=== PATIENT | female | born 1985 | race American Indian/Alaskan Native ===

== ENCOUNTER 2017-06-02 10:27 | Emergency (ER) | payer MEDICAID ==
--- NOTE | 2017-06-02 11:57 | Emergency Department Report ---
Chief Complaint: Abdominal Pain Stated Complaint: 17 WKS PREG/NO MOVEMENT/ABD PAIN Time Seen by Provider: 06/02/17 11:54 - HPI History of Present Illness: PT states she is 17 weeks and she has not felt movement for 4 days. PT states she called [facility] today and she was told to go to the ED. PT states her last [facility] [facility] visit was at 10 weeks - ROS Review of Systems: -dysuria - vaginal bleeding - Exam Physical Exam: pt looks well, non toxic abd soft and non tender MSE screening note: Focused history and physical exam performed. Due to findings the following was ordered: labs, us ED Disposition for MSE Condition: Stable Referrals: PRIMARY CARE, [Primary Care Provider] - 3-5 Days
--- NOTE | 2017-06-02 13:13 | Emergency Department Report ---
ED General Adult HPI - General Chief complaint: OB/Uterine Contractions Stated complaint: 17 WKS PREG/NO MOVEMENT/ABD PAIN Time Seen by Provider: 06/02/17 11:54 Source: patient Mode of arrival: Ambulatory Limitations: No Limitations - History of Present Illness Initial comments: Patient states that she felt a lack of movement and some uterine contractions earlier. She states that she spoke to [facility] who is her OB provider and they directed her to come to the emergency department. She states that her last visit was at 10 weeks. Current complaint. She has not been vomiting. She denies any problems urinating. -: days(s) Location: abdomen Radiation: non-radiation Quality: other (crampy) Consistency: constant Improves with: none Worsens with: none Associated Symptoms: denies other symptoms Treatments Prior to Arrival: none - Related Data Previous Rx's Medication Instructions Recorded Last Taken Type Ciprofloxacin HCl [Cipro] 500 mg PO Q12H #6 tab 02/17/15 Unknown Rx Fluconazole [Diflucan] 150 mg PO ONCE #1 tablet 02/17/15 Unknown Rx metroNIDAZOLE [Metrogel 1%] 1 applicatio TP QDAY #1 gel..gram. 02/17/15 Unknown Rx traMADol [Ultram 50 MG tab] 50 mg PO Q4HR PRN #15 tablet 02/17/15 Unknown Rx Allergies Allergy/AdvReac Type Severity Reaction Status Date / Time Penicillins Allergy Hives Verified 02/17/15 18:23 ED Review of Systems ROS: Stated complaint: 17 WKS PREG/NO MOVEMENT/ABD PAIN Other details as noted in HPI Constitutional: denies: chills, fever Eyes: denies: eye pain, eye discharge, vision change ENT: denies: ear pain, throat pain Respiratory: denies: cough, shortness of breath, wheezing Cardiovascular: denies: chest pain, palpitations Endocrine: no symptoms reported Gastrointestinal: as per HPI. denies: nausea, diarrhea Genitourinary: denies: urgency, dysuria, frequency, hematuria, discharge, abnormal menses (no vaginal bleeding) Musculoskeletal: denies: back pain, joint swelling, arthralgia Skin: denies: rash, lesions Neurological: denies: headache, weakness, paresthesias Psychiatric: denies: anxiety, depression Hematological/Lymphatic: denies: easy bleeding, easy bruising ED Past Medical Hx - Past Medical History Previous Medical History?: Yes Hx Hypertension: Yes - Surgical History Past Surgical History?: Yes Additional Surgical History: d&c - Social History Smoking Status: Never Smoker Substance Use Type: None - Medications Home Medications: Home Medications Medication Instructions Recorded Confirmed Last Taken Type Ciprofloxacin HCl [Cipro] 500 mg PO Q12H #6 tab 02/17/15 Unknown Rx Fluconazole [Diflucan] 150 mg PO ONCE #1 tablet 02/17/15 Unknown Rx metroNIDAZOLE [Metrogel 1%] 1 applicatio TP QDAY #1 gel..gram. 02/17/15 Unknown Rx traMADol [Ultram 50 MG tab] 50 mg PO Q4HR PRN #15 tablet 02/17/15 Unknown Rx ED Physical Exam - General Limitations: No Limitations General appearance: alert, in no apparent distress - Head Head exam: Present: atraumatic, normocephalic - Eye Eye exam: Present: normal appearance. Absent: scleral icterus - ENT ENT exam: Present: mucous membranes moist - Neck Neck exam: Present: normal inspection - Respiratory Respiratory exam: Present: normal lung sounds bilaterally. Absent: respiratory distress - Cardiovascular Cardiovascular Exam: Present: regular rate, normal rhythm. Absent: systolic murmur, diastolic murmur, rubs, gallop - GI/Abdominal GI/Abdominal exam: Present: soft, normal bowel sounds. Absent: distended, tenderness, guarding, rebound, rigid - Extremities Exam Extremities exam: Present: normal inspection - Back Exam Back exam: Present: normal inspection - Neurological Exam Neurological exam: Present: alert, oriented X3, CN II-XII intact. Absent: motor sensory deficit - Psychiatric Psychiatric exam: Present: normal affect, normal mood - Skin Skin exam: Present: warm, dry, intact, normal color. Absent: rash ED Course Vital Signs 06/02/17 06/02/17 06/02/17 11:50 11:54 12:27 Temperature 98.5 F Pulse Rate 89 90 Respiratory 20 16 20 Rate Blood Pressure 122/81 Blood Pressure 123/83 [Right] O2 Sat by Pulse 99 100 99 Oximetry Critical care attestation.: If time is entered above; I have spent that time in minutes in the direct care of this critically ill patient, excluding procedure time. ED Disposition Clinical Impression: with 16 completed weeks gestation Disposition: DC- TO HOME OR SELFCARE Is pt being admited?: No Does the pt Need Aspirin: No Condition: Stable Instructions: (ED) Additional Instructions: Follow-up with your usual OB physician. Return any acute change or problem. Referrals: PRIMARY CARE,MD [Primary Care Provider] - 3-5 Days Time of Disposition: 14:40
[2017-06-02 13:34] LABS: Bilirubin,Urine NEG (Negative); Blood,Urine SM (Negative); Ketones,Urine NEG (Negative); Leukocyte Esterase,Urine TR (Negative); Nitrite,Urine NEG (Negative); Protein,Urine <15 mg/dL mg/dL (Negative); Urobilinogen,Urine < 2.0 mg/dL (<2.0)
--- NOTE | 2017-06-02 14:24 | Ultrasound Report ---
COMPLETE OB ULTRASOUND: No motion. Gestation: Lemus Position: Transverse, head to maternal left Amniotic Fluid: WNL Placenta: Anterior Placental Grade: 0 Heart Rate: 145 BPM Cervical length: 5.3 cm (Normal > 3 cm) X It is too early for a anatomical survey BPD: 3.5 cm = 16 w 6 d HC: 13.2 cm = 16 w 5 d AC: 11.0 cm = 16 w 6 d FL: 2.2 cm = 16 w 4 d HC/AC Ratio: 1.20 Cephalic Index: 87.5 Estimated Weight: 166 grams Clinical age = 16 w 4 d EDC: 11/13/17 US Gest. Age = 16 w 5 d EDC: 11/12/17
[2017-06-02 14:48] VITALS: BP 120/84
== END 2017-06-02 14:48 | disposition home or self-care (01) ==
LOC: ED 10:27
DX: O36.8120 Decreased fetal movements, second trimester, not applicable or unspecified (principal); Z3A.16 16 weeks gestation of pregnancy; I10 Essential (primary) hypertension; Z88.0 Allergy status to penicillin
CPT/HCPCS: 76805; 81001; 81025

== ENCOUNTER 2017-07-10 08:58 | Outpatient (CLI) | payer MEDICAID ==
[2017-07-10] MEDS ORDERED: LACTATED RINGERS 500 ML IV ONE (09:22)
[2017-07-10 09:39] VITALS: BP 132/72
[2017-07-10 09:45] LABS: Bacteria,Urine 1+ /HPF (Negative); Bilirubin,Urine NEG (Negative); Blood,Urine NEG (Negative); Ketones,Urine TR mg/dL (Negative); Leukocyte Esterase,Urine LG (Negative); Mucus,Urine 2+ /HPF; Nitrite,Urine NEG (Negative); Urobilinogen,Urine < 2.0 mg/dL (<2.0)
== END 2017-07-10 12:04 | disposition home or self-care (01) ==
LOC: TRG 08:58
PROVIDERS: ATTEND Obstetrics & Gynecology
DX: O47.02 False labor before 37 completed weeks of gestation, second trimester (principal); Z3A.21 21 weeks gestation of pregnancy
CPT/HCPCS: 81001

== ENCOUNTER 2017-07-11 19:35 | Emergency (ER) | payer MEDICAID ==
[2017-07-11 20:29] LABS: Basophils % (Auto) 0.7 % (0.0-1.8); Eosinophils % (Auto) 0.5 % (0.0-4.3); Hematocrit 33.3 % (30.3-42.9); Hemoglobin 11.4 gm/dl (10.1-14.3); Mean Corpuscular HGB Conc 34 % (30-34); Mean Corpuscular Hemoglobin 31 pg (28-32); Mean Corpuscular Volume 90 fl (79-97); Platelet Count 186 K/mm3 (140-440); Red Blood Count 3.68 M/mm3 (3.65-5.03); Red Cell Distribution Width 12.7 % (13.2-15.2); White Blood Count 7.9 K/mm3 (4.5-11.0)
[2017-07-11 20:53] LABS: Anion Gap 16 mmol/L; BUN/Creatinine Ratio 8.33; Blood Urea Nitrogen 5 mg/dL (7-17); Calcium 8.9 mg/dL (8.4-10.2); Carbon Dioxide 22 mmol/L (22-30); Chloride 101.8 mmol/L (98-107); Glucose 95 mg/dL (65-100); Potassium 3.4 mmol/L (3.6-5.0); Sodium 136 mmol/L (137-145)
[2017-07-12] MEDS ORDERED: TYLENOL PO ONE (00:56)
[2017-07-12] MEDS ORDERED: TYLENOL ONE (01:01)
--- NOTE | 2017-07-12 10:20 | Emergency Department Report ---
ED Chest Pain HPI - General Chief Complaint: Chest Pain Stated Complaint: SOB Time Seen by Provider: 07/12/17 10:05 Source: patient Mode of arrival: Ambulatory Limitations: No Limitations - History of Present Illness Initial Comments: 31-year-old female presents to ER with complaints of palpitations on and off for one month. Patient has no significant past medical history. Patient is currently , with 21 weeks gestational age. During episodes of palpitations, she experiences shortness of breath, chest tightness, some nausea. She denies episodes of vomiting and diarrhea fever, no cough. No known triggers or relieving factors for this palpitations. Palpitations, sporadically. She denies smoking, and she takes a drink of coffee once a week. Denies use of [id number] medication except vitamins. -: month(s) (1) Onset: during rest, during exertion Pain Location: other (center of her chest, nonradiating) Pain Radiation: none Severity: moderate Severity scale (0 -10): 0 Quality: tightness Consistency: intermittent (normal aggravating or relieving factors) re: nausea, dyspnea. denies: vomting, diaphoresis, sense of impending doom, other Other Symptoms: palpitations. denies: cough, fever, syncope, rash, acid taste in mouth, leg swelling Aspirin use within the Past 7 Days: (0) No - Related Data Previous Rx's Medication Instructions Recorded Last Taken Type Cephalexin [Keflex] 1,000 mg PO Q12HR #20 cap 07/12/17 Unknown Rx Allergies Allergy/AdvReac Type Severity Reaction Status Date / Time Penicillins Allergy Hives Verified 02/17/15 18:23 Heart Score - HEART Score History: Slightly suspicious EKG: Normal Age: < 45 Risk factors: No known risk factors Troponin: < normal limit HEART Score: 0 ED Review of Systems ROS: Stated complaint: SOB Other details as noted in HPI Comment: All other systems reviewed and negative Constitutional: see HPI, weakness. denies: chills, diaphoresis, fever, malaise Eyes: denies: eye pain, eye discharge, vision change ENT: denies: ear pain, dental pain, hearing loss Respiratory: see HPI, shortness of breath. denies: cough, orthopnea, stridor, wheezing Cardiovascular: chest pain (chest tightness), palpitations. denies: dyspnea on exertion, edema, syncope, paroxysmal nocturnal dyspnea, other Endocrine: no symptoms reported. denies: excessive sweating, flushing, intolerance to cold, intolerance to heat, increased hunger, increased thirst, increased urine, unexplained weight gain, unexplained weight loss Gastrointestinal: denies: abdominal pain, diarrhea, constipation, hematemesis, hematochezia, other Genitourinary: denies: dysuria, frequency, hematuria, discharge, abnormal menses , dyspareunia Musculoskeletal: denies: joint swelling, arthralgia Skin: denies: change in color, change in hair/nails, pruritus Neurological: denies: numbness, paresthesias, confusion, abnormal gait, vertigo Hematological/Lymphatic: denies: easy bleeding, easy bruising ED Past Medical Hx - Past Medical History Previous Medical History?: Yes Hx Hypertension: No Hx Diabetes: No Hx Deep Vein Thrombosis: No Hx Renal Disease: No Hx Sickle Cell Disease: No Hx Seizures: No Hx Asthma: No Hx HIV: No - Surgical History Past Surgical History?: Yes Additional Surgical History: d&c - Social History Smoking Status: Never Smoker Substance Use Type: None - Medications Home Medications: Home Medications Medication Instructions Recorded Confirmed Last Taken Type Cephalexin [Keflex] 1,000 mg PO Q12HR #20 cap 07/12/17 Unknown Rx ED Physical Exam - General Limitations: No Limitations General appearance: alert, in no apparent distress - Head Head exam: Present: atraumatic, normocephalic, normal inspection - Eye Eye exam: Present: normal appearance, PERRL, EOMI - ENT ENT exam: Present: normal exam - Neck Neck exam: Present: normal inspection, full ROM - Respiratory Respiratory exam: Present: normal lung sounds bilaterally - Cardiovascular Cardiovascular Exam: Present: regular rate, normal rhythm, normal heart sounds - GI/Abdominal GI/Abdominal exam: Present: soft, normal bowel sounds, other (gravid abdomen) - Rectal Rectal exam: Present: deferred - Extremities Exam Extremities exam: Present: normal inspection, full ROM, normal capillary refill - Back Exam Back exam: Present: normal inspection, full ROM - Neurological Exam Neurological exam: Present: alert, oriented X3, CN II-XII intact - Psychiatric Psychiatric exam: Present: normal affect - Skin Skin exam: Present: warm, dry ED Course Vital Signs 07/11/17 07/12/17 07/12/17 19:51 00:54 04:42 Temperature 98.2 F 98.1 F 97.6 F Pulse Rate 92 H 86 87 Respiratory 20 20 20 Rate Blood Pressure 131/76 126/74 134/103 Blood Pressure [Left] O2 Sat by Pulse 100 100 99 Oximetry 07/12/17 07/12/17 07/12/17 08:30 08:31 08:35 Temperature Pulse Rate 70 Respiratory 16 16 Rate Blood Pressure 117/65 Blood Pressure 100/70 [Left] O2 Sat by Pulse 100 100 Oximetry 07/12/17 07/12/17 07/12/17 08:37 08:39 08:41 Temperature Pulse Rate Respiratory Rate Blood Pressure 117/65 117/65 117/65 Blood Pressure [Left] O2 Sat by Pulse 98 98 98 Oximetry 07/12/17 07/12/17 07/12/17 08:43 08:45 08:47 Temperature Pulse Rate Respiratory Rate Blood Pressure 117/65 117/65 117/65 Blood Pressure [Left] O2 Sat by Pulse 99 100 99 Oximetry 07/12/17 07/12/17 07/12/17 08:49 08:51 08:53 Temperature Pulse Rate Respiratory Rate Blood Pressure 117/65 117/65 117/65 Blood Pressure [Left] O2 Sat by Pulse 100 100 99 Oximetry 07/12/17 07/12/17 07/12/17 08:55 08:57 08:59 Temperature Pulse Rate Respiratory Rate Blood Pressure 117/65 117/65 117/65 Blood Pressure [Left] O2 Sat by Pulse 98 100 99 Oximetry 07/12/17 07/12/17 07/12/17 09:00 09:03 09:05 Temperature Pulse Rate Respiratory Rate Blood Pressure 116/66 116/66 116/66 Blood Pressure [Left] O2 Sat by Pulse 100 100 100 Oximetry 07/12/17 07/12/17 07/12/17 09:07 09:09 09:11 Temperature Pulse Rate Respiratory Rate Blood Pressure 116/66 116/66 116/66 Blood Pressure [Left] O2 Sat by Pulse 98 100 100 Oximetry 07/12/17 07/12/17 07/12/17 09:13 09:15 09:17 Temperature Pulse Rate Respiratory Rate Blood Pressure 116/66 116/66 116/66 Blood Pressure [Left] O2 Sat by Pulse 99 98 98 Oximetry 07/12/17 07/12/17 07/12/17 09:19 09:21 09:23 Temperature Pulse Rate Respiratory Rate Blood Pressure 116/66 116/66 116/66 Blood Pressure [Left] O2 Sat by Pulse 98 100 100 Oximetry 07/12/17 07/12/17 07/12/17 09:25 09:27 09:29 Temperature Pulse Rate Respiratory Rate Blood Pressure 116/66 116/66 116/66 Blood Pressure [Left] O2 Sat by Pulse 100 100 100 Oximetry 07/12/17 07/12/17 07/12/17 09:31 09:33 09:35 Temperature Pulse Rate Respiratory Rate Blood Pressure 116/66 116/66 116/66 Blood Pressure [Left] O2 Sat by Pulse 100 99 100 Oximetry 07/12/17 07/12/17 07/12/17 09:37 09:39 09:41 Temperature Pulse Rate Respiratory Rate Blood Pressure 116/66 116/66 116/66 Blood Pressure [Left] O2 Sat by Pulse 100 100 99 Oximetry 07/12/17 07/12/17 07/12/17 09:43 09:45 09:47 Temperature Pulse Rate Respiratory Rate Blood Pressure 116/66 116/66 116/66 Blood Pressure [Left] O2 Sat by Pulse 100 100 100 Oximetry 07/12/17 07/12/17 07/12/17 09:49 09:51 09:53 Temperature Pulse Rate Respiratory Rate Blood Pressure 116/66 116/66 116/66 Blood Pressure [Left] O2 Sat by Pulse 100 100 100 Oximetry 07/12/17 07/12/17 07/12/17 09:55 09:57 09:59 Temperature Pulse Rate Respiratory Rate Blood Pressure 116/66 116/66 116/66 Blood Pressure [Left] O2 Sat by Pulse 100 100 99 Oximetry 07/12/17 07/12/17 07/12/17 10:00 10:03 10:05 Temperature Pulse Rate Respiratory Rate Blood Pressure 116/74 116/74 116/74 Blood Pressure [Left] O2 Sat by Pulse 100 100 100 Oximetry 07/12/17 07/12/17 07/12/17 10:07 10:09 10:11 Temperature Pulse Rate Respiratory Rate Blood Pressure 116/74 116/74 116/66 Blood Pressure [Left] O2 Sat by Pulse 99 100 100 Oximetry 07/12/17 10:13 Temperature Pulse Rate Respiratory Rate Blood Pressure 116/66 Blood Pressure [Left] O2 Sat by Pulse 100 Oximetry - Reevaluation(s) Reevaluation #1: 07/12/17 12:48 No new complaints GARFIELD score - Garfield Score Age > 65: (0) No Aspirin use within the Past 7 Days: (0) No 3 or more CAD Risk Factors: (0) No 2 or more Angina events in past 24 hrs: (0) No Known CAD with more than 50% Stenosis: (0) No Elevated Cardiac Markers: (0) No ST Deviation Greater than 0.5mm: (0) No GARFIELD Score: 0 ED Medical Decision Making - Lab Data Result diagrams: 07/11/17 20:04 07/12/17 11:10 - EKG Data -: EKG Interpreted by Me (EKG with rate of 86 bpm normal axis, some artifacts, T -wave inversionsi in ) EKG shows normal: sinus rhythm, axis, intervals, QRS complexes, ST-T waves Rate: normal - EKG Data 07/12/17 12:52 EKG normal sinus rhythm rate of 86 beats per minutes, normal axis, T-wave inversion in V1 and V2, nonspecific ST changes in the 152 with 3 and aVF. Some artifacts noted, no ST elevations, normal intervals - Medical Decision Making Her urinalysis shows presence of UTI on labs done on 11 July were within normal limits Patient will follow with her primary care at [facility]. - Differential Diagnosis palpitations, urinary tract infection Critical Care Time: No Critical care attestation.: If time is entered above; I have spent that time in minutes in the direct care of this critically ill patient, excluding procedure time. ED Disposition Clinical Impression: Intermittent palpitations, UTI (urinary tract infection) during Disposition: TO HOME OR SELFCARE Is pt being admited?: No Does the pt Need Aspirin: No Condition: Stable Prescriptions: Cephalexin [Keflex] 1,000 mg PO Q12HR #20 cap Referrals: PRIMARY CARE, [Primary Care Provider] - 3-5 Days Time of Disposition: 13:03
[2017-07-12 10:52] LABS: Bacteria,Urine 2+ /HPF (Negative); Bilirubin,Urine NEG (Negative); Blood,Urine NEG (Negative); Ketones,Urine NEG (Negative); Leukocyte Esterase,Urine LG (Negative); Mucus,Urine FEW /HPF; Nitrite,Urine NEG (Negative); Protein,Urine <15 mg/dL mg/dL (Negative); Urobilinogen,Urine < 2.0 mg/dL (<2.0)
[2017-07-12 11:44] LABS: Alanine Aminotransferase 12 units/L (7-56); Albumin 3.5 g/dL (3.9-5); Albumin/Globulin Ratio 1.2 %; Alkaline Phosphatase 52 units/L (35-129); Anion Gap 18 mmol/L; Blood Urea Nitrogen 6 mg/dL (7-17); Calcium 9.2 mg/dL (8.4-10.2); Carbon Dioxide 21 mmol/L (22-30); Chloride 103.9 mmol/L (98-107); Glucose 81 mg/dL (65-100); Sodium 139 mmol/L (137-145); Total Protein 6.5 g/dL (6.3-8.2)
[2017-07-12 13:29] VITALS: BP 120/72
== END 2017-07-12 13:29 | disposition home or self-care (01) ==
LOC: ED 19:35
DX: O23.42 Unspecified infection of urinary tract in pregnancy, second trimester (principal); Z3A.21 21 weeks gestation of pregnancy; R00.2 Palpitations
CPT/HCPCS: 36415; 80048; 80053; 81001; 83735; 84436; 84443; 84484; 84702; 85025; 93005; 93010

== ENCOUNTER 2017-09-26 10:44 | Outpatient (CLI) | payer MEDICAID ==
[2017-09-26] MEDS ORDERED: LACTATED RINGERS 500 ML IV ONE (10:49)
[2017-09-26 11:11] VITALS: BP 129/76
== END 2017-09-26 12:15 | disposition home or self-care (01) ==
LOC: TRG 10:44
PROVIDERS: ATTEND Obstetrics & Gynecology
DX: O47.03 False labor before 37 completed weeks of gestation, third trimester (principal); Z79.899 Other long term (current) drug therapy; Z3A.32 32 weeks gestation of pregnancy
CPT/HCPCS: 59025; 82962

== ENCOUNTER 2021-09-24 19:53 | Emergency (ER) | payer MEDICAID ==
[2021-09-24] MEDS ORDERED: FLUORESCEIN 1 MG STRIP OP ONE (20:47)
[2021-09-24] MEDS ORDERED: ACETAMINOPHEN W/CODEINE 300-30 MG TAB PO ONE (20:47)
[2021-09-24] MEDS ORDERED: ACETAMINOPHEN 325 MG TAB PO ONE (20:47)
[2021-09-24] MEDS ORDERED: TETRACAINE 0.5% OPHTH SOLN 4ML OU PRN (20:48)
--- NOTE | 2021-09-24 21:05 | Emergency Department Report ---
ED General Adult HPI - General Chief complaint: Eye Problems Stated complaint: RIGHT EYE IS IRRRITATING ME Time Seen by Provider: 09/24/21 20:21 Source: patient Mode of arrival: Ambulatory Limitations: No Limitations - History of Present Illness Initial comments: 35-year-old -[place] female patient presents with complaints of right pain, photophobia, and irritation upon waking this morning. She states the eye is red and that she slept in her contacts last night. She denies any vision changes or difficulty moving her eyes/pain with eye movements. Patient is currently . She rates her pain as a 10/10 in severity. Severity scale (0 -10): 8 - Related Data Home Medications Medication Instructions Recorded Confirmed Last Taken Multivitamin Tablet 1 tab PO DAILY 11/03/17 11/03/17 11/03/17 09:00 valACYclovir 1,000 mg PO DAILY 11/03/17 11/03/17 11/03/17 08:00 Previous Rx's Medication Instructions Recorded Last Taken Type cephALEXin [Keflex] 1,000 mg PO Q12HR #20 cap 07/12/17 11/03/17 09:00 Rx Acetaminophen/Codeine [Tylenol 1 tab PO Q6H PRN #8 tab 09/24/21 Unknown Rx /Codeine # 3 tab] Ofloxacin 0.3% [Floxin 0.3% Otic] 2 drops OT Q2H 7 Days #1 bottle 09/24/21 Unknown Rx Allergies Allergy/AdvReac Type Severity Reaction Status Date / Time Penicillins Allergy Hives Verified 02/17/15 18:23 ED Review of Systems ROS: Stated complaint: RIGHT EYE IS IRRRITATING ME Other details as noted in HPI Constitutional: denies: chills, fever, malaise Eyes: eye pain, eye discharge (watery). denies: vision change Neurological: denies: headache, numbness, paresthesias ED Past Medical Hx - Past Medical History Hx Hypertension: Yes (PIH) Hx Congestive Heart Failure: No Hx Diabetes: No Hx Deep Vein Thrombosis: No Hx Renal Disease: No Hx Sickle Cell Disease: No Hx Seizures: No Hx Asthma: No Hx COPD: No Hx HIV: No - Surgical History Additional Surgical History: d&c - Social History Smoking Status: Never Smoker - Medications Home Medications: Home Medications Medication Instructions Recorded Confirmed Last Taken Type cephALEXin [Keflex] 1,000 mg PO Q12HR #20 cap 07/12/17 11/05/17 11/03/17 09:00 Rx Multivitamin Tablet 1 tab PO DAILY 11/03/17 11/03/17 11/03/17 09:00 History valACYclovir 1,000 mg PO DAILY 11/03/17 11/03/17 11/03/17 08:00 History Acetaminophen/Codeine [Tylenol 1 tab PO Q6H PRN #8 tab 09/24/21 Unknown Rx /Codeine # 3 tab] Ofloxacin 0.3% [Floxin 0.3% Otic] 2 drops OT Q2H 7 Days #1 bottle 09/24/21 Unkn own Rx ED Physical Exam - General Limitations: No Limitations General appearance: alert, in no apparent distress - Head Head exam: Present: atraumatic, normocephalic - Eye Eye exam: Present: conjunctival injection (Left with mild upper eyelid swelling noted), other (Minimal uptake noted in circular pattern around iris with contact lens lied; eyelid everted and swept no foreign bodies noted) - Respiratory Respiratory exam: Absent: respiratory distress - Cardiovascular Cardiovascular Exam: Present: regular rate - Neurological Exam Neurological exam: Present: alert, oriented X3 - Psychiatric Psychiatric exam: Present: normal affect, normal mood - Skin Skin exam: Present: warm, dry, intact, normal color. Absent: rash ED Course Vital Signs 09/24/21 09/24/21 20:12 21:16 Temperature 97.1 F L Pulse Rate 86 Respiratory 22 18 Rate Blood Pressure 148/90 [Right] O2 Sat by Pulse 100 Oximetry ED Medical Decision Making - Medical Decision Making 35-year-old -[place] female patient presents with complaints of right pain, photophobia, and irritation upon waking this morning. She states the eye is red and that she slept in her contacts last night. She denies any vision changes or difficulty moving her eyes/pain with eye movements. Patient is currently . She rates her pain as a 10/10 in severity. superficial irritation of the cornea noted on exam. Will treat with ofloxacin and pain meds. Discussed risks versus benefits of using Tylenol with codeine in , patient verbalizes understanding and elects for Tylenol with codeine for pain control. 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 Discussed in detail signs and symptoms that should prompt immediate return to the ED, she verbalizes understanding Critical care attestation.: If time is entered above; I have spent that time in minutes in the direct care of this critically ill patient, excluding procedure time. ED Disposition Clinical Impression: Right corneal abrasion Disposition: HOME / SELF CARE / HOMELESS Is pt being admited?: No Condition: Stable Instructions: Corneal Abrasion Prescriptions: Ofloxacin 0.3% [Floxin 0.3% Otic] 2 drops OT Q2H 7 Days #1 bottle Acetaminophen/Codeine [Tylenol /Codeine # 3 tab] 1 tab PO Q6H PRN #8 tab PRN Reason: Pain , Severe (7-10) Referrals: LAMONT HOUGH MD [Staff Physician] - as needed Forms: Work/School Release Form(ED)
[2021-09-24 22:33] VITALS: BP 151/96
== END 2021-09-24 22:35 | disposition home or self-care (01) ==
LOC: ED 19:53
DX: O26.899 Other specified pregnancy related conditions, unspecified trimester (principal); S05.01XA Injury of conjunctiva and corneal abrasion without foreign body, right eye, initial encounter; I10 Essential (primary) hypertension; Z98.890 Other specified postprocedural states; Z88.0 Allergy status to penicillin; X58.XXXA Exposure to other specified factors, initial encounter; Y93.89 Activity, other specified; Y92.89 Other specified places as the place of occurrence of the external cause; Y99.8 Other external cause status; Z3A.00 Weeks of gestation of pregnancy not specified
CPT/HCPCS: 99282

== ENCOUNTER 2022-02-13 12:59 | Outpatient (CLI) | payer MEDICAID ==
[2022-02-13 13:53] LABS: Hematocrit 34.3 % (30.3-42.9); Mean Corpuscular HGB Conc 35 % (30-34); Mean Corpuscular Volume 91 fl (79-97); Platelet Count 190 K/mm3 (140-440); Red Blood Count 3.77 M/mm3 (3.65-5.03)
[2022-02-13 13:56] LABS: Bacteria,Urine 1+ /HPF (Negative); Bilirubin,Urine NEG (Negative); Blood,Urine NEG (Negative); Color,Urine Yellow (Yellow); Mucus,Urine FEW /HPF; Protein,Urine <15 mg/dL mg/dL (Negative); Urobilinogen,Urine < 2.0 mg/dL (<2.0)
[2022-02-13 14:16] LABS: Alanine Aminotransferase 7 units/L (7-56); Uric Acid 3.5 mg/dL (3.5-7.6)
[2022-02-13 14:58] LABS: Creatinine,Urine 101.4 mg/dL (0.1-20.0); Protein/Creatinine Ratio,Urine 0.2
[2022-02-13 15:01] VITALS: BP 123/62
== END 2022-02-13 15:35 | disposition home or self-care (01) ==
LOC: TRG 12:59 → APU 13:03 → TRG 15:35
PROVIDERS: ATTEND Obstetrics & Gynecology
DX: Z34.83 Encounter for supervision of other normal pregnancy, third trimester (principal); Z3A.29 29 weeks gestation of pregnancy
CPT/HCPCS: 36415; 59025; 81001; 82565; 82570; 83615; 84156; 84450; 84460; 84550; 85027

== ENCOUNTER 2022-04-13 11:53 | Inpatient (IN) | payer MEDICAID ==
[2022-04-13 14:20] LABS: Hematocrit 34.2 % (30.3-42.9); Hemoglobin 11.5 gm/dl (10.1-14.3); Mean Corpuscular HGB Conc 34 % (30-34); Mean Corpuscular Volume 92 fl (79-97); Platelet Count 177 K/mm3 (140-440); Red Blood Count 3.72 M/mm3 (3.65-5.03); Red Cell Distribution Width 13.5 % (13.2-15.2)
--- NOTE | 2022-04-13 14:39 | History and Physical Report ---
History of Present Illness Date of examination: 04/13/22 Date of admission: 04/13/22 11:53 Chief complaint: States she is here for induction of labor due to CHTN; states she baby was in the transverse position on her last ultrsound History of present illness: Early entry to care at [facility], course complicated by CHTN (Labetalol 200mg BID/ ASA 81mg); had abnormal hour GTT (154); but declined 2hour and 3 hour GTT, and accuchecks). Co-managed with [facility]. 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 History: herpes Family/Genetic History: diabetes (Aunt; MGM; PGM), hypertension (father; PGM), cancer (Lung CA: MGF; Colon CA: uncle) Social history: - Obstetrical History Expected Date of Delivery: 04/25/22 Actual Gestation: 38 Week(s) 2 Day(s) : 7 Para: 3 Hx # Term Pregnancies: 2 Number of Pregnancies: 1 Spontaneous Abortions: 3 Number of Living Children: 3 #1 Infant Gender: Male year: 2,008 Birthweight: 3.515 kg Method of Delivery: Vaginal Gestational age at delivery: 39 Complications: other (HTN) #2 Gender: Female year: 2,013 Birthweight: 2.807 kg Method of Delivery: Vaginal Gestational age at delivery: 34 Complications: other (HAs) #3 Infant Gender: Female year: 2,018 Birthweight: 3.09 kg Method of Delivery: Vaginal Gestational age at delivery: 38 Complications: none Medications and Allergies Allergies Allergy/AdvReac Type Severity Reaction Status Date / Time Penicillins Allergy Hives Verified 02/17/15 18:23 Home Medications Medication Instructions Recorded Confirmed Last Taken Type cephALEXin [Keflex] 1,000 mg PO Q12HR #20 cap 07/12/17 11/05/17 11/03/17 09:00 Rx Multivitamin Tablet 1 tab PO DAILY 11/03/17 11/03/17 11/03/17 09:00 History valACYclovir 1,000 mg PO DAILY 11/03/17 11/03/17 11/03/17 08:00 History Acetaminophen/Codeine [Tylenol 1 tab PO Q6H PRN #8 tab 09/24/21 Unknown Rx /Codeine # 3 tab] Ofloxacin 0.3% [Floxin 0.3% Otic] 2 drops OT Q2H 7 Days #1 bottle 09/24/21 U nknown Rx Review of Systems All systems: negative - Vital Signs Vital signs: Vital Signs Pulse BP Pulse Ox 84 141/89 98 04/13/22 12:31 04/13/22 12:31 04/13/22 12:31 Temp Pulse Resp BP Pulse Ox 98.7 F 84 16 141/89 98 04/13/22 13:17 04/13/22 14:28 04/13/22 13:17 04/13/22 13:17 04/13/22 14:28 - Physical Exam Breasts: Positive: normal Cardiovascular: Regular rate Lungs: Positive: Clear to auscultation, Normal air movement Abdomen: Positive: normal appearance, soft, normal bowel sounds Genitourinary (Female): Positive: normal external genitalia, normal perenium Vagina: Positive: normal moisture Uterus: Positive: enlarged Anus/Rectum: Positive: normal perianal skin Extremities: Positive: normal - Obstetrical FHR: category 1 Uterine Contraction Monitor Mode: External Cervical Dilatation: 0 Cervical Effacement Percentage: 0 station: -3 Uterine Contraction Pattern: Irregular Uterine Tone Measurement Phase: Resting Uterine Contraction Intensity: Mild Results Result Diagrams: 04/13/22 13:35 All other labs normal. Assessment and Plan A: IUP @ 38 2/7 Weeks Category I Tracing CHTN Uterine Fibroids r/o Transverse Position Maternal Obesity HSV II GB Positive P: Follow Routine L&D Admission Orders STAT bedside ultrasound for position PIH labs if VTX; proceed with Cervidil Induction if Transvere proceed with and BTL Labetalol 200mg PO BID GBS Prophylaxis
[2022-04-13] MEDS ORDERED: ePHEDrine SULFATE 50 MG/1 ML INJ IV PRN (14:53)
[2022-04-13] MEDS ORDERED: NALOXONE 0.4 MG/1 ML INJ IV PRN (14:53)
[2022-04-13] MEDS ORDERED: ONDANSETRON 4 MG/2 ML INJ IV PRN (14:53)
[2022-04-13] MEDS ORDERED: CARBOPROST TROMETHAMINE 250 MCG/1 ML INJ IM PRN (14:53)
[2022-04-13] MEDS ORDERED: LOPERAMIDE 2 MG CAP PO PRN (14:53)
[2022-04-13] MEDS ORDERED: BUTORPHANOL 2 MG/1 ML INJ IV PRN (14:53)
[2022-04-13] MEDS ORDERED: miSOPROStol 200 MCG TAB PR PRN (14:53)
[2022-04-13] MEDS ORDERED: MINERAL OIL 30 ML ORAL LIQD PO PRN (14:53)
[2022-04-13] MEDS ORDERED: OXYTOCIN 10 UNIT/1 ML INJ IM PRN (14:53)
[2022-04-13] MEDS ORDERED: DINOPROSTONE 10 MG VAG SUPP VG ONE (14:53)
[2022-04-13] MEDS ORDERED: TERBUTALINE 1 MG/1 ML INJ SUB-Q PRN (14:53)
[2022-04-13] MEDS ORDERED: LIDOCAINE (2%) 20 MG/1 ML VIAL 20 ML MDV INFILTRATI ONE (14:53)
[2022-04-13] MEDS ORDERED: OXYTOCIN DRIP 30 UNITS/500 ML BAG IV SCH ×2 (15:00)
[2022-04-13] MEDS ORDERED: LACTATED RINGERS 1,000 ML IV SCH (15:00)
[2022-04-13 15:41] VITALS: BP 140/87
--- NOTE | 2022-04-13 16:13 | Ultrasound Report ---
Limited OB ultrasound INDICATION: Evaluate position FINDINGS: Single intrauterine in breech position. heart rate 1 45 bpm. IMPRESSION: Intrauterine in breech position Signer Name: Jersey Roque MD Signed: 04/13/2022 4:08 PM Workstation Name: [id number]
[2022-04-13 16:22] LABS: Alanine Aminotransferase 8 units/L (7-56); Uric Acid 3.6 mg/dL (3.5-7.6)
[2022-04-13] MEDS ORDERED: ceFAZolin/NS 1 GM/50 ML 1 GM/50 ML BAG IV SCH (23:00)
== END 2022-04-13 16:25 | disposition home or self-care (01) | DRG 781 ==
LOC: LD 11:53
PROVIDERS: ADMIT Obstetrics & Gynecology; ATTEND Obstetrics & Gynecology
DX: O99.213 Obesity complicating pregnancy, third trimester (principal); O16.3 Unspecified maternal hypertension, third trimester; O34.13 Maternal care for benign tumor of corpus uteri, third trimester; O99.820 Streptococcus B carrier state complicating pregnancy; O98.313 Other infections with a predominantly sexual mode of transmission complicating pregnancy, third trimester; A60.00 Herpesviral infection of urogenital system, unspecified; Z3A.38 38 weeks gestation of pregnancy
CPT/HCPCS: 36415; 76815; 82565; 83615; 84450; 84460; 84550; 85014; 85018; 85027; 86592; 86850; 86900; 86901; G0378

== ENCOUNTER 2022-04-13 21:14 | Inpatient (IN) | payer MEDICAID ==
[2022-04-13 22:33] LABS: Hematocrit 32.8 % (30.3-42.9); Hemoglobin 11.4 gm/dl (10.1-14.3); Mean Corpuscular HGB Conc 35 % (30-34); Mean Corpuscular Volume 92 fl (79-97); Platelet Count 176 K/mm3 (140-440); Red Blood Count 3.57 M/mm3 (3.65-5.03); Red Cell Distribution Width 13.5 % (13.2-15.2)
[2022-04-13] MEDS: LACTATED RINGERS 1,000 ML IV SCH (23:37)
[2022-04-14] MEDS: LACTATED RINGERS 1,000 ML IV SCH ×2 (05:58→16:14)
--- NOTE | 2022-04-14 10:11 | Ultrasound Report ---
Limited OB ultrasound INDICATION: Evaluate FINDINGS: There is a single live intrauterine in cephalic position. Ultrasound age 38 weeks 3 days. IMPRESSION: Live intrauterine in cephalic position Signer Name: Jersey Roque MD Signed: 04/14/2022 10:07 AM Workstation Name: [id number]
--- NOTE | 2022-04-14 11:34 | History and Physical Report ---
History of Present Illness Date of examination: 04/14/22 Date of admission: 04/13/22 21:14 t Chief complaint: elevated blood pressure History of present illness: elevated blood pressures, unstable lie, obese Past History Past Medical History: hypertension, other (pre diabetes) Past Surgical History: D&C (2005) [employer] History: herpes - Obstetrical History Expected Date of Delivery: 04/25/22 Actual Gestation: 38 Week(s) 3 Day(s) : 7 Para: 3 Hx # Term Pregnancies: 2 Number of Pregnancies: 1 Induced : 3 Number of Living Children: 3 #1 Gender: Male year: 2,[birth year] Birthweight: 7 lb 1.92 oz Method of Delivery: Vaginal Gestational age at delivery: 39 Complications: other (PPHTN) #2 Gender: Female year: 2,013 Birthweight: 6 lb 4.8 oz Method of Delivery: Vaginal Gestational age at delivery: 34 Complications: none #3 Gender: Female year: 2,018 Birthweight: 6 lb 2.08 oz Method of Delivery: Vaginal Gestational age at delivery: 38 Complications: none Medications and Allergies Allergies Allergy/AdvReac Type Severity Reaction Status Date / Time Penicillins Allergy Hives Verified 02/17/15 18:23 Home Medications Medication Instructions Recorded Confirmed Last Taken Type cephALEXin [Keflex] 1,000 mg PO Q12HR #20 cap 07/12/17 11/05/17 11/03/17 09:00 Rx Multivitamin Tablet 1 tab PO DAILY 11/03/17 11/03/17 11/03/17 09:00 History valACYclovir 1,000 mg PO DAILY 11/03/17 11/03/17 11/03/17 08:00 History Acetaminophen/Codeine [Tylenol 1 tab PO Q6H PRN #8 tab 09/24/21 Unknown Rx /Codeine # 3 tab] Ofloxacin 0.3% [Floxin 0.3% Otic] 2 drops OT Q2H 7 Days #1 bottle 09/24/21 Unknown Rx Active Meds: Active Medications Lactated Ringer's (Lactated Ringers) 1,000 mls @ 125 mls/hr IV DIRECT FLORINA Last Admin: 04/14/22 05:58 Dose: 125 mls/hr - Vital Signs Vital signs: Vital Signs Pulse Pulse Ox 99 H 99 04/13/22 21:39 04/13/22 21:39 Temp Pulse Resp BP Pulse Ox 98.2 F 84 16 139/95 99 04/14/22 07:49 04/14/22 11:30 04/14/22 07:49 04/14/22 10:44 04/14/22 11:30 - Physical Exam Breasts: Positive: deferred Cardiovascular: Regular rate Lungs: Positive: Clear to auscultation Abdomen: Positive: normal appearance, soft Results Result Diagrams: 04/13/22 22:15 Abnormal lab results 04/13/22 Range/Units 22:15 RBC 3.57 L (3.65-5.03) M/mm3 MCHC 35 H (30-34) % All other labs normal. Ultrasound: report reviewed (VERTEX PRESENTATION) Assessment and Plan A: @38.3WKS GESTATION IOL FOR ELEVATED BLOOD PRESSURES UNSTABLE LIE CHRONIC HTN GBS POS AMA BMI 37 A1C 5.5%, FAILED 1HR. DECLINES 2HR AND 3HR HSVII UTERINE FIBROIDS PLAN: REPEAT U/S 04/14 VERTEX IOL TO START ANTIBIOTICS GBS LABETALOL 200MG BID BS CHECKS FASTING/PP
[2022-04-14] MEDS ORDERED: LIDOCAINE (2%) 20 MG/1 ML VIAL 20 ML MDV INFILTRATI NR (11:50)
[2022-04-14] MEDS ORDERED: METHYLERGONOVINE MALEATE 0.2 MG/ML VIAL IM PRN (11:50)
[2022-04-14] MEDS ORDERED: NALOXONE 0.4 MG/1 ML INJ IV PRN (11:50)
[2022-04-14] MEDS ORDERED: LOPERAMIDE 2 MG CAP PO PRN (11:50)
[2022-04-14] MEDS ORDERED: DINOPROSTONE 10 MG VAG SUPP VG NR (11:50)
[2022-04-14] MEDS ORDERED: PROMETHAZINE 25 MG TAB PO PRN (11:50)
[2022-04-14] MEDS ORDERED: miSOPROStol 200 MCG TAB PR PRN (11:50)
[2022-04-14] MEDS ORDERED: CARBOPROST TROMETHAMINE 250 MCG/1 ML INJ IM PRN (11:50)
[2022-04-14] MEDS ORDERED: TERBUTALINE 1 MG/1 ML INJ SUB-Q PRN (11:50)
[2022-04-14] MEDS ORDERED: OXYTOCIN DRIP 30 UNITS/500 ML BAG IV SCH ×2 (12:00)
[2022-04-14] MEDS ORDERED: ePHEDrine SULFATE 50 MG/1 ML INJ IV PRN (12:30)
[2022-04-14] MEDS ORDERED: ONDANSETRON 4 MG/2 ML INJ IV PRN (13:00)
[2022-04-14] MEDS ORDERED: BUTORPHANOL 2 MG/1 ML INJ IV PRN ×2 (13:00)
[2022-04-14] MEDS ORDERED: OXYTOCIN 10 UNIT/1 ML INJ IM PRN (13:00)
--- NOTE | 2022-04-14 14:02 | Event Note ---
Date: 04/14/22 (1300) VE 0/P/OOP VERY SOFT WILL START CERVIDIL WHEN STAFFING PERMITS
--- NOTE | 2022-04-14 16:24 | Event Note ---
Date: 04/14/22 (1203) CHECKED ON PT, RN HAS NOT STARTED IOL OF YET DUE TO STAFF SHORTAGE. PT STABLE. INSTRUCTED TO DO NST
[2022-04-14] MEDS ORDERED: MINERAL OIL 30 ML ORAL LIQD PO PRN (22:00)
[2022-04-15] MEDS ORDERED: DINOPROSTONE 10 MG VAG SUPP VG NR (07:32)
--- NOTE | 2022-04-15 09:36 | Ultrasound Report ---
ULTRASOUND OBSTETRIC LIMITED INDICATION / CLINICAL INFORMATION: positioning and NADIYA. Clinical Gestational Age (GA): 38.4 weeks.days COMPARISON: OB ultrasound 04/14/2022 FINDINGS: HEART RATE (beats per minute): 135 AMNIOTIC FLUID INDEX (cm) = 18.5 (normal = 7-24 cm) PRESENTATION: Cephalic. ADDITIONAL FINDINGS: None. IMPRESSION: 1. No significant abnormality. Signer Name: Dorian Monreal MD Signed: 04/15/2022 9:31 AM Workstation Name: [id number]
--- NOTE | 2022-04-15 10:17 | Event Note ---
Date: 04/15/22 pt evaluated after received cervidil and pt states the contractions all stopped. FHR category and u/s confirms vertex lie at this time with unstable lie and wearing abdominal binder. Pt counseled on cytotec induction with cervidil changing cervix to only 1/long/high. Ctx are irregular. Expect .
[2022-04-15] MEDS: miSOPROStol 25 MCG TAB PO SCH ×3 (10:42→22:03)
[2022-04-15] MEDS: LACTATED RINGERS 1,000 ML IV SCH ×2 (13:34→21:02)
[2022-04-15] MEDS ORDERED: ZOLPIDEM 5 MG TAB PO PRN (20:41)
[2022-04-15] MEDS: BENZONATATE 100 MG CAP PO SCH (22:55)
[2022-04-16] MEDS ORDERED: BUTORPHANOL 2 MG/1 ML INJ IV PRN (01:23)
[2022-04-16] MEDS ORDERED: fentaNYL 100 MCG/2 ML INJ IV PRN (01:24)
[2022-04-16] MEDS: miSOPROStol 25 MCG TAB PO SCH ×4 (02:11→14:54)
--- NOTE | 2022-04-16 02:42 | Event Note ---
Date: 04/16/22 This patient is undergoing induction of labor secondary to chronic hypertension on medications. This patient received Cervidil #1 and Cytotec 25 mcg p.o. every 4 hours x4 doses for cervical ripening. However, the SVE= 1/long/-3 still. As such, Cook's catheter was inserted transcervically and placed to a 1 L bag of lactated Ringer's. The patient is already receiving intravenous Ancef for GBS prophylaxis. When Cook's catheter falls out, artificially rupture membranes insert Pitocin.
[2022-04-16] MEDS: LACTATED RINGERS 1,000 ML IV SCH (05:31)
[2022-04-16] MEDS: BENZONATATE 100 MG CAP PO SCH ×2 (06:06→14:53)
--- NOTE | 2022-04-16 06:42 | Event Note ---
Date: 04/16/22 Cook's catheter fell out. SVE revealed that the external os is 3 cm dilated. However, based on the internal os the SVE is still 1/long/-3. As such, the cervical exam is currently not favorable for AROM. OB ultrasound limited revealed that fetus is still in the vertex position. Estimated weight is 2986 g (18th %-ile). Continue Cytotec 50 mcg p.o. every 4 hours to attempt further cervical ripening. If that does not ripen cervix further, consider Pitocin.
[2022-04-16] MEDS: ACETAMINOPHEN 325 MG TAB PO PRN ×3 (07:09→20:23)
[2022-04-16] MEDS ORDERED: ePHEDrine SULFATE 50 MG/1 ML INJ ONE (11:43)
[2022-04-16] MEDS ORDERED: PHENYLEPHRINE/NS 1,000 MCG/10 ML SYRINGE (OR USE) IV ONE (11:43)
[2022-04-16] MEDS ORDERED: ONDANSETRON 4 MG/2 ML INJ ONE (11:44)
--- NOTE | 2022-04-16 11:47 | Ultrasound Report ---
US OB follow up INDICATION / CLINICAL INFORMATION: Chronic hypertension on medications COMPARISON: Limited OB ultrasound 04/14/2022 TECHNIQUE: Using a transcutaneous probe, multiple grayscale, color Doppler, and spectral Doppler imag es of the uterus and fetus were captured and stored. FINDINGS: Single cephalic fetus with heart rate of 136 bpm is demonstrated. Biparietal Diameter = 8.7 cm = 35, 2 weeks, days Head Circumference = 33.3 cm = 38, 0 weeks, days Abdominal Circumference = 33.5 cm = 37, 3 weeks, days Femur Length = 6.8 cm = 35, 0 weeks, days Average Ultrasound Age (AUA) = 36, 3 weeks, days. EDC 05/11/2022 Estimated weight = 2986 g the growth percentile is 18%.. IMPRESSION: 1. Single living fetus as detailed. Signer Name: Paulino Smith II, MD Signed: 04/16/2022 5:10 AM Workstation Name: [id number]
[2022-04-16] MEDS ORDERED: MAGNESIUM SULFATE 4 GM/100 ML BAG IV ONE (17:55)
[2022-04-16] MEDS ORDERED: MAGNESIUM SULFATE 40GM/1000ML 40 GM/1,000 ML BAG IV SCH (18:00)
[2022-04-16 20:45] LABS: Hematocrit 30.2 % (30.3-42.9); Hemoglobin 10.3 gm/dl (10.1-14.3); Mean Corpuscular HGB Conc 34 % (30-34); Mean Corpuscular Volume 93 fl (79-97); Platelet Count 153 K/mm3 (140-440); Red Blood Count 3.27 M/mm3 (3.65-5.03); Red Cell Distribution Width 13.5 % (13.2-15.2)
[2022-04-16 20:52] LABS: Alanine Aminotransferase 5 units/L (7-56); Uric Acid 3.6 mg/dL (3.5-7.6)
--- NOTE | 2022-04-17 11:49 | Event Note ---
Date: 04/17/22 pt evaluated now on pitocin at 18mu/min and pelvic external os 6cm and internal unable to get thru due to excess scarring. When questioned pt states she admits to having cervical procedure in the past however successful vaginal delivery after that procedure. Pt still refuses section. Will do transvag to evaluate for any vessel (vasa previa) or low/marginal placenta. Will hold pitocin until transvag u/s done. Pt told if the cervix will not dilate and if we cannot AROM safely, our only alternative is a delivery. Pt no l onger on mag sulfate and ruano cath in place when I did the pelvic exam /. Pt also encouraged to get epidural for which she accepts but not at this time. All questions encouraged and answered.
--- NOTE | 2022-04-17 12:56 | Ultrasound Report ---
US OB limited, US OB transvaginal INDICATION / CLINICAL INFORMATION: placenta location. Clinical Gestational Age (GA) in weeks, days: 38 weeks 6 days TECHNIQUE: Transabdominal and Transvaginal. COMPARISON: 04/16/2022 FINDINGS: Single live intrauterine in cephalic presentation with heart rate of 139 bpm. Limited images of the posterior placenta demonstrate the placental edge covering the cervical os. The re is free fluid in the cervix. CRITICAL RESULT: Placenta previa Time of Discovery (WOOD PILER/CDT): 04/17/2022 1145 AM Time of Communication (WOOD PILER/CDT): 04/17/2022 at 11:50 AM Licensed Practitioner Receiving Report: Dr. Land Read-Back Performed: Yes. Signer Name: Rufino Junior MD Signed: 04/17/2022 12:51 PM Workstation Name: [id number]
--- NOTE | 2022-04-17 12:56 | Ultrasound Report ---
US OB limited, US OB transvaginal INDICATION / CLINICAL INFORMATION: placenta location. Clinical Gestational Age (GA) in weeks, days: 38 weeks 6 days TECHNIQUE: Transabdominal and Transvaginal. COMPARISON: 04/16/2022 FINDINGS: Single live intrauterine in cephalic presentation with heart rate of 139 bpm. Limited images of the posterior placenta demonstrate the placental edge covering the cervical os. The re is free fluid in the cervix. CRITICAL RESULT: Placenta previa Time of Discovery (ASSEMBLER EQUIPMENT/CDT): 04/17/2022 1145 AM Time of Communication (ASSEMBLER EQUIPMENT/CDT): 04/17/2022 at 11:50 AM Licensed Practitioner Receiving Report: Dr. Land Read-Back Performed: Yes. Signer Name: Rufino Junior MD Signed: 04/17/2022 12:51 PM Workstation Name: [id number]
[2022-04-17] MEDS ORDERED: FAMOTIDINE 20 MG/2 ML INJ IV SCH (13:09)
[2022-04-17] MEDS ORDERED: BICITRA ORAL LIQD 30ML PO SCH (13:09)
[2022-04-17] MEDS ORDERED: METOCLOPRAMIDE 10 MG/2 ML INJ IV SCH (13:09)
[2022-04-17] MEDS ORDERED: SODIUM CHLORIDE 0.9% 500 ML 500 ML IV SCH (13:10)
[2022-04-17] MEDS ORDERED: LACTATED RINGERS 1,000 ML IV SCH (13:15)
--- NOTE | 2022-04-17 13:17 | Event Note ---
Date: 04/17/22 I was called by radiologist who gives current vag u/s read as placenta previa. Discussed with pt that vaginal delivery is contraindicated and recommendation now is to proceed with section. Discussed the risks, benefits and alternatives of this procedure, including possible hysterectomy for unseen acreta for persistent hemorrhage. Pt last drank water in the past hr and ate arzola at breakfast. Anesthesiologist to be notified and NICU as to when this procedure can take place with baby still having Category I FHR. With the risks of heavy bleeding anticipated, PRBC [id number] ordered to be in the OR and repeat CBC done today with type and screen. All questions encouraged and answered.
[2022-04-17] MEDS ORDERED: ceFAZolin/Water 2 GM/20 ML 2 GM/20 ML SYRINGE IV SCH (14:00)
[2022-04-17] MEDS ORDERED: OXYTOCIN DRIP 30 UNITS/500 ML BAG IV SCH (14:00)
[2022-04-17] MEDS ORDERED: BUPIVACAINE/PF (0.5%) 5 MG/1 ML 30 ML VIAL INFILTRATI ONE (15:04)
[2022-04-17] MEDS ORDERED: PHENYLEPHRINE/NS 1,000 MCG/10 ML SYRINGE (OR USE) IV ONE ×2 (15:04→19:43)
[2022-04-17] MEDS ORDERED: ONDANSETRON 4 MG/2 ML INJ ONE ×2 (15:04→19:43)
[2022-04-17] MEDS ORDERED: SODIUM CHLORIDE P/F VIAL 10 ML 10 ML ONE (15:04)
[2022-04-17] MEDS ORDERED: ePHEDrine SULFATE 50 MG/1 ML INJ ONE ×2 (15:04→19:43)
[2022-04-17] MEDS ORDERED: dexAMETHasone 20 MG/5 ML VIAL ONE (15:07)
[2022-04-17] MEDS ORDERED: SODIUM CHLORIDE 0.9% 100 ML ONE (15:09)
[2022-04-17 15:17] LABS: Basophils % (Auto) 0.2 % (0.0-1.8); Eosinophils % (Auto) 0.7 % (0.0-4.3); Hematocrit 31.5 % (30.3-42.9); Hemoglobin 10.6 gm/dl (10.1-14.3); Lymphocytes # (Auto) 0.9 K/mm3 (1.2-5.4); Lymphocytes % (Auto) 14.8 % (13.4-35.0); Mean Corpuscular HGB Conc 34 % (30-34); Mean Corpuscular Volume 92 fl (79-97); Monocytes # (Auto) 0.6 K/mm3 (0.0-0.8); Monocytes % (Auto) 8.8 % (0.0-7.3); Platelet Count 155 K/mm3 (140-440); Red Blood Count 3.42 M/mm3 (3.65-5.03); Red Cell Distribution Width 13.5 % (13.2-15.2)
[2022-04-17] MEDS: LACTATED RINGERS 1,000 ML IV SCH (18:48)
--- NOTE | 2022-04-17 19:29 | Event Note ---
Date: 04/17/22 Discussed with pt the need to delay the case until asst surgeon available, anticipate possible hemorrhage with large fibroid and vasaprevia and gra ndmultiparity. Further delay with another emergent c/section and will proceed when the OR is available. Pt fetus remains with category I. Consents discussed in detail including hysterectomy and PRBC x2 available for procedure today. All questions encouraged and answered. Will give labetalol 20mg IV now with elevated BP >160/110 and nurse told to start IV mag sulfate if BP persistently elevated and also to give Labetalol 40mg IV following the IV antihypertensive protocol. Sign out given to stone rigger team.
[2022-04-17] MEDS ORDERED: ePHEDrine SULFATE 50 MG/1 ML INJ IV PRN (23:51)
[2022-04-17] MEDS ORDERED: NALOXONE 0.4 MG/1 ML INJ IV PRN (23:51)
--- NOTE | 2022-04-17 23:54 | Anesthesia Consultation ---
Anesthesia Consult and Med Hx Date of service: 04/17/22 - Airway Anesthetic Teeth Evaluation: Good ROM Head & Neck: Adequate Mental/Hyoid Distance: Adequate Mallampati Class: Class II Intubation Access Assessment: Probably Good - Pulmonary Exam CTA: Yes - Cardiac Exam Cardiac Exam: RRR - Pre-Operative Health Status ASA Pre-Surgery Classification: ASA2 - Pulmonary Hx Smoking: No Hx Asthma: No Hx Respiratory Symptoms: No SOB: No COPD: No Hx Pneumonia: No Hx Sleep Apnea: No - Cardiovascular System Hx Hypertension: Yes (chtn) Hx Coronary Artery Disease: No Hx Heart Attack/AMI: No Hx Angina: No Hx Percutaneous Transluminal Coronary Angioplasty (PTCA): No Hx Cardia Arrhythmia: No Hx Pacemaker: No Hx Internal Defibrillator: No Hx Valvular Heart Disease: No Hx Heart Murmur: No Hx Peripheral Vascular Disease: No - Central Nervous System Hx Neuromuscular Disorder: No Hx Seizures: No CVA: No Hx Back Pain: No Hx Psychiatric Problems: No - Gastrointestinal Hx Ulcer: No Hx Gastroesophageal Reflux Disease: No - Endocrine Hx Renal Disease: No Hx End Stage Renal Disease: No Hx Cirrhosis: No Hx Liver Disease: No Hx Insulin Dependent Diabetes: No Hx Non-Insulin Dependent Diabetes: No Hx Thyroid Disease: No Hx Hypothyroidism: No Hx Hyperthyroidism: No - Hematic Hx Anemia: No Hx Sickle Cell Disease: No - Other Systems Hx Alcohol Use: No Hx Substance Use: No Hx Cancer: No Hx Obesity: No
--- NOTE | 2022-04-17 23:55 | Anesthesia Day of Surgery ---
Anesthesia Day of Surgery - Day of Surgery Patient Examined: Yes Patient H&P Reviewed: Yes Patient is NPO: Yes Beta Blockers: No Cardiac Clearance: No Pulmonary Clearance: No Reese's Test: N/A
--- NOTE | 2022-04-17 23:57 | Ultrasound Report ---
US OB transvaginal INDICATION / CLINICAL INFORMATION: Placenta Previa vs. Vasa Previa vs. Normal Finding COMPARISON: Limited OB ultrasound 04/17/2022 TECHNIQUE: Using a endovaginal probe, multiple grayscale color Doppler images were captured and store d the cervix, placenta, and fetus. FINDINGS: During image acquisition, Dr. Alonso was present and confirmed no previa. Images acquired were inter preted at the bedside by the physician of record. Single cephalic fetus present. Heart rate not documented. IMPRESSION: 1. As above Signer Name: Paulino Smith II, MD Signed: 04/17/2022 11:52 PM Workstation Name: [id number]
--- NOTE | 2022-04-18 00:02 | Progress Note ---
Labor Epidural - Labor Epidural Start Time: 23:32 Stop Time: 23:37 Performed by:: LLOYD DÍAZ Procedure: Patient is requesting epidural for labor pain. H&P and labs reviewed. Procedure explained, questions answered, consent obtained. Patient placed in sitting position with monitors applied. Timeout performed immediately before start of procedure. Prep/drape in usual sterile fashion. Skin localized 3 mL 1% lidocaine at L[3]-L[4] x 1 attempt. 17-gauge Touhy epidural needle advanced to NEENA with saline at [7] cm. No blood/CSF noted via epidural needle. Epidural catheter advanced to [12] cm. Negative aspiration for blood and CSF via catheter, negative response to test dose 3 ml 1.5% lidocaine w/ Epi. Sterile dressing applied followed by tape reinforcement. Patient tolerated procedure well. No immediate complications noted.
[2022-04-18] MEDS: fentaNYL-BUPIV 2 MCG/ML-0.125% 200 MCG/100 ML BAG EPIDURAL SCH ×3 (00:05→16:32)
[2022-04-18] MEDS: miSOPROStol 25 MCG TAB PO SCH ×3 (01:31→10:04)
[2022-04-18] MEDS ORDERED: METOCLOPRAMIDE 10 MG/2 ML INJ IV ONE (02:57)
--- NOTE | 2022-04-18 03:00 | Event Note ---
Date: 04/17/22 CC: HD #4, IOL secondary to cHTN on medication HPI: O: BP= 154/94 EFM= category 1 TOCO= irregular SVE= 1/long/-3 RAD: OB TVUS (by me)= No vasa previa seen. No placenta previa seen. Placenta is posterior with a possible low-lying component. Real-time images were reviewed in conjunction with Dr. Randy Yeung (Maternal- Medicine). IMP: 1.) 38 weeks 2.) cHTN on medication 3.) GBS (+) 4.) HSV-2, on suppression 5.) AMA 6.) Encounter for IOL PLAN: 1.) care is at [facility]. She refused her glucose tolerance test. She is GBS positive. 2.) Labetalol increased to 200 mg p.o. 3 times daily. The goal is to keep blood pressure below 160/110. Administer IV antihypertensives per ACOG HTN maternal safety bundle. I do not suspect superimposed preeclampsia at this time. 3.) As this patient is penicillin allergic, prescribe Ancef for intrapartum GBS prophylaxis per 2010 CDC MMWR recommendations. 4.) Earlier today, pelvic ultrasound done by the radiology department reported vasa previa (on preliminary report) and placenta previa (on final report). I reviewed the ultrasound reports from maternal- medicine that were performed during this patient's antepartum course; those ultrasound reports did not raise any suspicion for vasa previa or placenta previa. In addition, this patient's clinical course during this admission is not congruent with the common symptoms of placenta previa since Cervidil/Cytotec/multiple cervical vaginal exams/Cook's catheter insertion were used without heavy vaginal bleeding. With assistance from the sonography department, I performed a bedside OB transvaginal ultrasound; that investigation revealed no vasa previa, no placenta previa, posterior placenta with a possible low-lying component. Dr. Randy Yeung re viewed these images in real-time and voiced that he concurred that this patient did not have a vasa previa or placenta previa. 5.) As such, restart induction of labor with placement of a Cook's catheter after epidural and administration of Cytotec 50 mcg p.o. every 4 hours. 6.) Continue Valtrex for suppression of HSV 2.
--- NOTE | 2022-04-18 06:30 | Event Note ---
Date: 04/18/22 CC: HD #5, IOL secondary to cHTN on medication HPI: 36 y/o at 39 weeks is undergoing induction labor secondary to chronic hypertension on medication. There is no vaginal bleeding. There is good movement. There are regular contractions. Cook's catheter fell out. O: BP= 149/92 EFM= category 1 TOCO= q 5 min SVE= 5/50%/-3. AROM'ed. Clear fluid. RAD: OB TVUS (by me)= No vasa previa seen. No placenta previa seen. Placenta is posterior with a possible low-lying component. Real-time images were reviewed in conjunction with Dr. Randy Yeung (Maternal- Medicine). IMP: 1.) 39 weeks 2.) cHTN on medication 3.) GBS (+) 4.) HSV-2, on suppression 5.) AMA 6.) Encounter for IOL PLAN: 1.) care is at [facility]. She refused her glucose tolerance test. She is GBS positive. 2.) Now on Labetalol 200 mg p.o. 3 times daily. The goal is to keep blood pressure below 160/110. Administer IV antihypertensives per ACOG HTN maternal safety bundle. I do not suspect superimposed preeclampsia at this time. 3.) As this patient is penicillin allergic, she is on Ancef for intrapartum GBS prophylaxis per 2010 CDC MMWR recommendations. 4.) Start Pitocin per protocol. 5.) Continue Valtrex for suppression of HSV-2. No active lesions.
[2022-04-18] MEDS ORDERED: OXYTOCIN DRIP 30 UNITS/500 ML BAG IV SCH (07:00)
[2022-04-18] MEDS: LACTATED RINGERS 1,000 ML IV SCH ×2 (08:31→16:24)
[2022-04-18] MEDS ORDERED: ceFAZolin/NS 1 GM/50 ML 1 GM/50 ML BAG IV SCH (09:00)
[2022-04-18] MEDS: valACYclovir 500 MG TAB PO SCH (09:42)
--- NOTE | 2022-04-18 13:20 | Progress Note ---
Assessment and Plan A: IUP @ 39 Weeks Category I Tracing CHTN GBS Positive P: Continue Pitocin Augmentation Continue GBS Prophylaxis Continue Labetalol as ordered Subjective - Subjective Date of service: 04/18/22 Patient reports: contractions, other (Resting under epidural) Objective - Vital Signs Vital Signs: Vital Signs - 12hr 04/18/22 04/18/22 04/18/22 01:17 01:22 01:27 Temperature Pulse Rate 81 79 77 Respiratory Rate Blood Pressure 149/86 O2 Sat by Pulse 97 98 96 Oximetry 04/18/22 04/18/22 04/18/22 01:32 01:33 01:37 Temperature Pulse Rate 88 85 89 Respiratory Rate Blood Pressure 138/86 O2 Sat by Pulse 100 99 Oximetry 04/18/22 04/18/22 04/18/22 01:42 01:47 01:52 Temperature Pulse Rate 81 78 91 H Respiratory Rate Blood Pressure O2 Sat by Pulse 100 97 100 Oximetry 04/18/22 04/18/22 04/18/22 01:57 02:02 02:07 Temperature Pulse Rate 78 81 80 Respiratory Rate Blood Pressure O2 Sat by Pulse 97 100 99 Oximetry 04/18/22 04/18/22 04/18/22 02:12 02:17 02:22 Temperature Pulse Rate 88 77 89 Respiratory Rate Blood Pressure O2 Sat by Pulse 99 99 100 Oximetry 04/18/22 04/18/22 04/18/22 02:27 02:32 02:34 Temperature Pulse Rate 78 80 73 Respiratory Rate Blood Pressure 150/94 O2 Sat by Pulse 100 100 Oximetry 04/18/22 04/18/22 04/18/22 02:37 02:42 02:47 Temperature Pulse Rate 79 75 74 Respiratory Rate Blood Pressure O2 Sat by Pulse 99 99 99 Oximetry 04/18/22 04/18/22 04/18/22 02:52 02:57 03:02 Temperature Pulse Rate 78 81 77 Respiratory Rate Blood Pressure O2 Sat by Pulse 100 100 100 Oximetry 04/18/22 04/18/22 04/18/22 03:07 03:12 03:17 Temperature Pulse Rate 80 83 74 Respiratory Rate Blood Pressure O2 Sat by Pulse 99 100 98 Oximetry 04/18/22 04/18/22 04/18/22 03:22 03:27 03:32 Temperature Pulse Rate 71 77 74 Respiratory Rate Blood Pressure O2 Sat by Pulse 98 98 97 Oximetry 04/18/22 04/18/22 04/18/22 03:34 03:37 03:42 Temperature Pulse Rate 71 71 73 Respiratory Rate Blood Pressure 146/86 O2 Sat by Pulse 98 99 Oximetry 04/18/22 04/18/22 04/18/22 03:47 03:52 03:57 Temperature Pulse Rate 76 73 80 Respiratory Rate Blood Pressure O2 Sat by Pulse 98 97 100 Oximetry 04/18/22 04/18/22 04/18/22 04:02 04:07 04:12 Temperature Pulse Rate 77 78 78 Respiratory Rate Blood Pressure O2 Sat by Pulse 99 99 98 Oximetry 04/18/22 04/18/22 04/18/22 04:17 04:22 04:27 Temperature Pulse Rate 80 74 81 Respiratory Rate Blood Pressure O2 Sat by Pulse 98 98 99 Oximetry 04/18/22 04/18/22 04/18/22 04:32 04:36 04:37 Temperature Pulse Rate 77 85 79 Respiratory Rate Blood Pressure 152/84 O2 Sat by Pulse 99 100 Oximetry 04/18/22 04/18/22 04/18/22 04:42 04:47 04:52 Temperature Pulse Rate 92 H 82 82 Respiratory Rate Blood Pressure O2 Sat by Pulse 97 98 96 Oximetry 04/18/22 04/18/22 04/18/22 04:57 05:02 05:07 Temperature Pulse Rate 79 79 86 Respiratory Rate Blood Pressure O2 Sat by Pulse 97 97 96 Oximetry 04/18/22 04/18/22 04/18/22 05:12 05:17 05:22 Temperature Pulse Rate 81 87 81 Respiratory Rate Blood Pressure O2 Sat by Pulse 99 96 99 Oximetry 04/18/22 04/18/22 04/18/22 05:27 05:32 05:34 Temperature Pulse Rate 79 82 92 H Respiratory Rate Blood Pressure 141/93 O2 Sat by Pulse 98 99 Oximetry 04/18/22 04/18/22 04/18/22 05:35 05:37 05:42 Temperature Pulse Rate 91 H 91 H 90 Respiratory 18 Rate Blood Pressure O2 Sat by Pulse 100 100 Oximetry 04/18/22 04/18/22 04/18/22 05:47 05:49 05:52 Temperature 99.1 F Pulse Rate 86 92 H Respiratory 18 Rate Blood Pressure O2 Sat by Pulse 99 100 99 Oximetry 04/18/22 04/18/22 04/18/22 05:57 06:02 06:07 Temperature Pulse Rate 85 79 87 Respiratory Rate Blood Pressure O2 Sat by Pulse 99 99 99 Oximetry 04/18/22 04/18/22 04/18/22 06:12 06:17 06:22 Temperature Pulse Rate 82 92 H 88 Respiratory Rate Blood Pressure O2 Sat by Pulse 99 99 98 Oximetry 04/18/22 04/18/22 04/18/22 06:27 06:32 06:34 Temperature Pulse Rate 84 82 90 Respiratory Rate Blood Pressure 142/85 O2 Sat by Pulse 99 98 Oximetry 04/18/22 04/18/22 04/18/22 06:37 06:42 06:47 Temperature Pulse Rate 82 79 87 Respiratory Rate Blood Pressure O2 Sat by Pulse 98 97 99 Oximetry 04/18/22 04/18/22 04/18/22 06:52 06:57 07:02 Temperature Pulse Rate 84 81 84 Respiratory Rate Blood Pressure O2 Sat by Pulse 97 98 96 Oximetry 04/18/22 04/18/22 04/18/22 07:07 07:12 07:17 Temperature Pulse Rate 99 H 90 83 Respiratory Rate Blood Pressure O2 Sat by Pulse 99 98 97 Oximetry 04/18/22 04/18/22 04/18/22 07:22 07:27 07:32 Temperature Pulse Rate 82 91 H 84 Respiratory Rate Blood Pressure O2 Sat by Pulse 98 98 98 Oximetry 04/18/22 04/18/22 04/18/22 07:35 07:37 07:42 Temperature Pulse Rate 80 80 85 Respiratory Rate Blood Pressure 145/85 O2 Sat by Pulse 98 97 Oximetry 04/18/22 04/18/22 04/18/22 07:47 07:52 07:57 Temperature Pulse Rate 75 88 85 Respiratory Rate Blood Pressure O2 Sat by Pulse 94 98 97 Oximetry 04/18/22 04/18/22 04/18/22 08:02 08:07 08:12 Temperature Pulse Rate 84 84 84 Respiratory Rate Blood Pressure O2 Sat by Pulse 98 97 99 Oximetry 04/18/22 04/18/22 04/18/22 08:17 08:18 08:20 Temperature 97.8 F Pulse Rate 92 H 85 Respiratory Rate Blood Pressure 145/85 O2 Sat by Pulse 99 Oximetry 04/18/22 04/18/22 04/18/22 08:22 08:27 08:32 Temperature Pulse Rate 104 H 87 94 H Respiratory Rate Blood Pressure O2 Sat by Pulse 100 99 99 Oximetry 04/18/22 04/18/22 04/18/22 08:34 08:35 08:37 Temperature Pulse Rate 86 96 H 93 H Respiratory Rate Blood Pressure 141/89 150/95 O2 Sat by Pulse 98 Oximetry 04/18/22 04/18/22 04/18/22 08:42 08:47 08:52 Temperature Pulse Rate 83 86 84 Respiratory Rate Blood Pressure O2 Sat by Pulse 98 99 98 Oximetry 04/18/22 04/18/22 04/18/22 08:57 09:02 09:07 Temperature Pulse Rate 92 H 84 91 H Respiratory Rate Blood Pressure O2 Sat by Pulse 98 98 99 Oximetry 04/18/22 04/18/22 04/18/22 09:12 09:17 09:22 Temperature Pulse Rate 87 87 93 H Respiratory Rate Blood Pressure O2 Sat by Pulse 99 99 100 Oximetry 04/18/22 04/18/22 04/18/22 09:27 09:32 09:35 Temperature Pulse Rate 89 83 78 Respiratory Rate Blood Pressure 124/78 O2 Sat by Pulse 100 99 Oximetry 04/18/22 04/18/22 04/18/22 09:37 09:42 09:47 Temperature Pulse Rate 87 81 86 Respiratory Rate Blood Pressure O2 Sat by Pulse 98 98 99 Oximetry 04/18/22 04/18/22 04/18/22 09:52 09:57 10:02 Temperature Pulse Rate 80 85 86 Respiratory Rate Blood Pressure O2 Sat by Pulse 99 98 99 Oximetry 04/18/22 04/18/22 04/18/22 10:07 10:12 10:17 Temperature Pulse Rate 87 86 88 Respiratory Rate Blood Pressure O2 Sat by Pulse 98 97 98 Oximetry 04/18/22 04/18/22 04/18/22 10:22 10:27 10:32 Temperature Pulse Rate 88 81 82 Respiratory Rate Blood Pressure O2 Sat by Pulse 98 97 98 Oximetry 04/18/22 04/18/22 04/18/22 10:34 10:37 10:42 Temperature Pulse Rate 80 90 83 Respiratory Rate Blood Pressure 143/76 O2 Sat by Pulse 98 97 Oximetry 04/18/22 04/18/22 04/18/22 10:47 10:52 10:57 Temperature Pulse Rate 83 96 H 82 Respiratory Rate Blood Pressure O2 Sat by Pulse 97 100 98 Oximetry 04/18/22 04/18/22 04/18/22 11:02 11:07 11:12 Temperature Pulse Rate 81 82 85 Respiratory Rate Blood Pressure O2 Sat by Pulse 98 98 99 Oximetry 04/18/22 04/18/22 04/18/22 11:17 11:22 11:27 Temperature Pulse Rate 89 82 85 Respiratory Rate Blood Pressure O2 Sat by Pulse 98 97 97 Oximetry 04/18/22 04/18/22 04/18/22 11:32 11:34 11:37 Temperature Pulse Rate 86 91 H 82 Respiratory Rate Blood Pressure 133/76 O2 Sat by Pulse 96 98 Oximetry 04/18/22 04/18/22 04/18/22 11:42 11:47 11:52 Temperature Pulse Rate 86 86 88 Respiratory Rate Blood Pressure O2 Sat by Pulse 97 97 98 Oximetry 04/18/22 04/18/22 04/18/22 11:57 12:02 12:07 Temperature Pulse Rate 83 82 85 Respiratory Rate Blood Pressure O2 Sat by Pulse 98 98 99 Oximetry 04/18/22 04/18/22 04/18/22 12:12 12:17 12:22 Temperature Pulse Rate 84 84 85 Respiratory Rate Blood Pressure O2 Sat by Pulse 98 98 98 Oximetry 04/18/22 04/18/22 04/18/22 12:27 12:32 12:34 Temperature Pulse Rate 95 H 80 85 Respiratory Rate Blood Pressure 131/78 O2 Sat by Pulse 99 99 Oximetry 04/18/22 04/18/22 04/18/22 12:37 12:42 12:47 Temperature Pulse Rate 90 83 97 H Respiratory Rate Blood Pressure O2 Sat by Pulse 99 99 100 Oximetry 04/18/22 04/18/22 04/18/22 12:52 12:57 13:02 Temperature Pulse Rate 83 99 H 82 Respiratory Rate Blood Pressure O2 Sat by Pulse 99 99 100 Oximetry 04/18/22 04/18/22 13:07 13:12 Temperature Pulse Rate 78 95 H Respiratory Rate Blood Pressure O2 Sat by Pulse 98 99 Oximetry - Exam Breasts: normal Cardiovascular: Regular rate Lungs: Clear to auscultation, Normal air movement Abdomen: Present: normal appearance, soft Uterus: Present: normal, firm, fundal height above umbilicus FHR: category 1 Uterine Contraction Monitor Mode: External Cervical Dilatation: 5.5 (leaking a large amount of clear fluid) Cervical Effacement Percentage: 60 station: -3 Uterine Contraction Pattern: Regular Uterine Tone Measurement Phase: Resting Uterine Contraction Intensity: Moderate Extremities: normal - Labs Labs: Abnormal Labs 04/13/22 04/16/22 04/16/22 22:15 18:42 18:42 RBC 3.57 L 3.27 L Hct 30.2 L MCHC 35 H [place] % (Auto) Lymph # (Auto) Seg Neutrophils % Magnesium ALT 5 L Crossmatch 04/17/22 04/17/22 04/17/22 02:48 14:15 14:15 RBC 3.42 L Hct MCHC [place] % (Auto) 8.8 H Lymph # (Auto) 0.9 L Seg Neutrophils % 75.5 H Magnesium 3.00 H ALT Crossmatch See Detail Laboratory Results - last 24 hr 04/17/22 04/17/22 14:15 14:15 WBC 6.4 RBC 3.42 L Hgb 10.6 Hct 31.5 MCV 92 MCH 31 MCHC 34 RDW 13.5 Plt Count 155 Lymph % (Auto) 14.8 [place] % (Auto) 8.8 H Eos % (Auto) 0.7 Baso % (Auto) 0.2 Lymph # (Auto) 0.9 L [place] # (Auto) 0.6 Eos # (Auto) 0.0 Baso # (Auto) 0.0 Seg Neutrophils % 75.5 H Seg Neutrophils # 4.8 Blood Type A POSITIVE Antibody Screen Negative Crossmatch See Detail
[2022-04-18] MEDS ORDERED: diphenhydrAMINE 25 MG CAP PO PRN (17:13)
[2022-04-18] MEDS ORDERED: WITCH HAZEL/ GLYCERIN PAD TP PRN (17:13)
[2022-04-18] MEDS ORDERED: LANOLIN/ZINC/DIMETHICONE (LANSINOH) 7 GM TP PRN (17:13)
--- NOTE | 2022-04-18 17:26 | Procedure Note ---
OB Delivery Note - Delivery Date of Delivery: 04/18/22 (1655) Surgeon: MASSIMO MONTELONGO Estimated blood loss: 200cc - Vaginal Delivery presentation: vertex Delivery position: OA Intrapartum events: gestational hypertension (CHTN), precipitous labor- <3hr Delivery induction: misoprostol Delivery augmentation: rupture of membranes, pitocin Delivery monitor: external FHT, external uterine Route of delivery: Delivery placenta: spontaneous Delivery cord: 3 umbilical vessels Episiotomy: none Delivery laceration: none Anesthesia: epidural Delivery comments: Precipitous vaginal delivery of a 6'10 male infant over a intact perineum under epidural anesthesia with Apgars of 8 and 9 at 1655 on 04/18/2022. Infant directly to maternal abd/chest, skin to skin contact. Delayed cord clamping and cutting; Cord cut by the Father of the Baby. Spontaneous delivery of placenta complete and intact with Gaspar side presenting at 1705. Fundus is firm and midline located 4 below the U. Lochia is scant. Cord blood collected. GBS treated x 4. - Infant A at 1 minute: 8 at 5 minutes: 9 Gender: Male (6'10)
[2022-04-18] MEDS ORDERED: MAGNESIUM SULFATE 4 GM/100 ML BAG IV ONE (18:16)
--- NOTE | 2022-04-18 18:26 | Event Note ---
Date: 04/18/22 S: Patient denies HAs, visual changes, dizziness, N&V, and epigastic pain. Admits to feeling sleepy. O: BPs elevated since delivery: 144/85, 163/97, 174/101, 162/91, 158/100 EXT: WNLs A: CHTN with Superimposed Preeclampsia P: Start Magnesium Sulfate 4G/Now; then 2G/hourly Standard Magnesium precautions Continue Labetalol 200mg PO TID Dr. Pinto Consulted
[2022-04-18] MEDS: MAGNESIUM SULFATE 40GM/1000ML 40 GM/1,000 ML BAG IV SCH (19:08)
[2022-04-18] MEDS: HYDROcodone/ACETAMINOPHEN 5-325 MG TAB PO PRN (22:13)
[2022-04-19 05:08] LABS: Hematocrit 30.5 % (30.3-42.9); Hemoglobin 10.1 gm/dl (10.1-14.3)
--- NOTE | 2022-04-19 08:06 | Post Anesthesia Evaluation ---
<ELIJAH DELEON - Last Filed: 04/19/22 08:05> - Post Anesthesia Evaluation Patient Participated: Yes Airway Patent: Yes Stable Respiratory Function: Yes Nausea/Vomiting: No Temp > 96.8F: Yes Pain Manageable: Yes Adequeate Hydration: Yes Anesthesia Complications: No Block Receding Appropriately: Yes (Patient remain on Magnesium infusion with ruano. Moves all extremities and reports that numbness has receded.) Patient on Ventilator: No <MARAL BRADLEY - Last Filed: 04/19/22 13:25> - Post Anesthesia Evaluation Other Comments: Co-signed for chart completion.
[2022-04-19] MEDS ORDERED: LACTATED RINGERS 1,000 ML ONE (09:45)
[2022-04-19] MEDS ORDERED: PRENATAL VIT27-FE FUMARATE-FOLIC ACID VIT TAB PO SCH (10:00)
[2022-04-19] MEDS: MAGNESIUM SULFATE 40GM/1000ML 40 GM/1,000 ML BAG IV SCH (10:34)
[2022-04-19] MEDS: LOSARTAN 25 MG TAB PO SCH (11:00)
[2022-04-19] MEDS: HYDROcodone/ACETAMINOPHEN 5-325 MG TAB PO PRN ×2 (11:01→21:55)
[2022-04-19] MEDS: valACYclovir 500 MG TAB PO SCH (11:02)
--- NOTE | 2022-04-19 11:16 | Progress Note ---
Assessment and Plan PPD#1 with better controlled HTN, with single elevated BP, remains without headache and currently on mag sulfate 1. Will transfer to mother/baby if BP remains wnl 2. Will continue new ARB med prescribed and pt not to breast feed 3. Plan of care discussed, all questions encouraged and answered Subjective Date of service: 04/19/22 Principal diagnosis: PPD#1 with better control of Chronic HTN; multiple uterine fibroids Interval history: pt hs no complaints. pt denies headache. Pt states that she was told by dr. Alonso that she cannot breast feed when taking this new me for better control of her HTN. Vag bleed scant. Pt has been on mag sulfate since she delivered and most recent elevated BP seen and nurse states it was malpositioned in the arm and retaken same was normal; peds nurse to bedside and notified pt that her baby has reflux and may benefit from , pt chose not breast feed and baby formula changed. Objective - Constitutional Vitals: Vital Signs - 12hr 04/18/22 04/19/22 04/19/22 23:11 00:11 01:11 Temperature 98.6 F Pulse Rate 88 78 82 Respiratory 18 18 18 Rate Blood Pressure 124/72 121/78 116/75 Blood Pressure 124/72 121/78 116/75 [Right] O2 Sat by Pulse 99 Oximetry O2 Sat by Pulse Oximetry [ Bilateral] 04/19/22 04/19/22 04/19/22 02:11 03:11 04:11 Temperature Pulse Rate 80 75 90 Respiratory 18 18 20 Rate Blood Pressure 117/75 123/80 150/92 Blood Pressure 117/75 123/80 150/92 [Right] O2 Sat by Pulse Oximetry O2 Sat by Pulse Oximetry [ Bilateral] 04/19/22 04/19/22 04/19/22 05:11 06:11 07:11 Temperature Pulse Rate 77 83 88 Respiratory 18 18 Rate Blood Pressure 131/81 122/81 123/90 Blood Pressure 131/81 122/81 [Right] O2 Sat by Pulse Oximetry O2 Sat by Pulse Oximetry [ Bilateral] 04/19/22 04/19/22 04/19/22 08:11 09:11 10:06 Temperature Pulse Rate 100 H 83 91 H Respiratory Rate Blood Pressure 141/88 130/70 Blood Pressure [Right] O2 Sat by Pulse 99 Oximetry O2 Sat by Pulse Oximetry [ Bilateral] 04/19/22 04/19/22 04/19/22 10:11 10:13 10:16 Temperature Pulse Rate 83 85 87 Respiratory Rate Blood Pressure 160/100 143/94 Blood Pressure [Right] O2 Sat by Pulse 98 99 Oximetry O2 Sat by Pulse Oximetry [ Bilateral] 04/19/22 04/19/22 04/19/22 10:21 10:25 10:26 Temperature 98.4 F Pulse Rate 86 90 Respiratory 16 Rate Blood Pressure Blood Pressure [Right] O2 Sat by Pulse 99 98 Oximetry O2 Sat by Pulse Oximetry [ Bilateral] 04/19/22 04/19/22 04/19/22 10:27 10:31 10:36 Temperature Pulse Rate 85 89 Respiratory Rate Blood Pressure Blood Pressure [Right] O2 Sat by Pulse 99 98 Oximetry O2 Sat by Pulse 99 Oximetry [ Bilateral] 04/19/22 04/19/22 04/19/22 10:41 10:46 10:51 Temperature Pulse Rate 82 80 78 Respiratory Rate Blood Pressure Blood Pressure [Right] O2 Sat by Pulse 98 97 98 Oximetry O2 Sat by Pulse Oximetry [ Bilateral] 04/19/22 04/19/22 04/19/22 10:56 11:00 11:01 Temperature Pulse Rate 81 84 86 Respiratory Rate Blood Pressure 143/94 Blood Pressure [Right] O2 Sat by Pulse 98 99 Oximetry O2 Sat by Pulse Oximetry [ Bilateral] 04/19/22 11:06 Temperature Pulse Rate 83 Respiratory Rate Blood Pressure Blood Pressure [Right] O2 Sat by Pulse 99 Oximetry O2 Sat by Pulse Oximetry [ Bilateral] General appearance: Present: no acute distress - Neck Neck: supple - Respiratory Respiratory effort: normal - Breasts Breasts: deferred - Cardiovascular Rhythm: regular Extremities: No edema - Gastrointestinal General gastrointestinal: Present: soft, non-tender - Genitourinary Female genitourinary: other (Fundus firm 2cm below umbilicus and fibroids palpated, one to the uterine fundus. Lochia small) - Integumentary Integumentary: warm, dry - Neurologic Neurologic: moves all extremities - Psychiatric Psychiatric: cooperative - Labs CBC & Chem 7: 04/19/22 04:43 04/16/22 18:42 Medications & Allergies - Medications Allergies/Adverse Reactions: Allergies Penicillins Allergy (Verified 02/17/15 18:23) Hives Home Medications: Home Medications Medication Instructions Recorded Confirmed Last Taken Type cephALEXin [Keflex] 1,000 mg PO Q12HR #20 cap 07/12/17 11/05/17 11/03/17 09:00 Rx Multivitamin Tablet 1 tab PO DAILY 11/03/17 11/03/17 11/03/17 09:00 History valACYclovir 1,000 mg PO DAILY 11/03/17 11/03/17 11/03/17 08:00 History Acetaminophen/Codeine [Tylenol 1 tab PO Q6H PRN #8 tab 09/24/21 Unknown Rx /Codeine # 3 tab] Ofloxacin 0.3% [Floxin 0.3% Otic] 2 drops OT Q2H 7 Days #1 bottle 09/24/21 Unknown Rx Active Medications: Generic Name Dose Route Start Last Admin Trade Name Freq PRN Reason Stop Dose Admin Hydrocodone Bitart/Acetaminophen 2 each 04/18/22 17:13 04/19/22 11:01 Hydrocodone/Acetaminophen 5-325 Mg Tab PO 2 each Q6H PRN Administration Pain, Moderate (4-6) Magnesium Sulfate 40 gm in 1,000 mls @ 50 mls/hr 04/18/22 19:00 04/19/22 10:34 Magnesium Sulfate 40gm/1000ml IV 2 gm/hr DIRECT FLORINA 50 mls/hr Administration 2 GM/HR Losartan Potassium 25 mg 04/19/22 10:00 04/19/22 11:00 Losartan 25 Mg Tab PO 25 mg QDAY FLORINA Administration Multi-Ingredient Ointment 1 applic 04/18/22 17:13 Lanolin/Zinc/Dimethicone (Lansinoh) 7 Gm TP PRN PRN Sore Nipples Sodium Chloride 10 ml 04/18/22 18:00 Sodium Chloride 0.9% 10 Ml Flush Syringe IV PRN FLORINA Valacyclovir HCl 1,000 mg 04/18/22 10:00 04/19/22 11:02 Valacyclovir 500 Mg Tab PO 1,000 mg QDAY FLORINA Administration [place]/Glycerin 1 each 04/18/22 17:13 [place]/ Glycerin Pad TP PRN PRN Hemorrhoid/cleansing/soothing
[2022-04-19] MEDS ORDERED: ONDANSETRON 4 MG/2 ML INJ IV PRN (21:42)
[2022-04-19] MEDS ORDERED: LANOLIN/ZINC/DIMETHICONE (LANSINOH) 7 GM TP PRN (21:42)
[2022-04-19] MEDS ORDERED: oxyCODONE /ACETAMINOPHEN 5-325MG TAB PO PRN (21:42)
[2022-04-19] MEDS ORDERED: WITCH HAZEL/ GLYCERIN PAD TP PRN (21:42)
[2022-04-19] MEDS ORDERED: PROMETHAZINE 25 MG RECT SUPP PR PRN (21:42)
[2022-04-19] MEDS ORDERED: ACETAMINOPHEN 325 MG TAB PO PRN (21:42)
[2022-04-19] MEDS ORDERED: PROMETHAZINE 25 MG TAB PO PRN (21:42)
[2022-04-19] MEDS ORDERED: diphenhydrAMINE 25 MG CAP PO PRN (21:42)
[2022-04-19] MEDS ORDERED: MAGNESIUM HYDROXIDE (MOM) ORAL LIQD UDC PO PRN (21:42)
[2022-04-20] MEDS: HYDROcodone/ACETAMINOPHEN 5-325 MG TAB PO PRN ×3 (06:03→18:21)
[2022-04-20] MEDS: LOSARTAN 25 MG TAB PO SCH (10:22)
[2022-04-20] MEDS: amLODIPine 5 MG TAB PO SCH (10:22)
--- NOTE | 2022-04-20 17:12 | Progress Note ---
Assessment and Plan PPD#2 with CHTN better control with 2 meds 1. Continue ARB and calcium channel stefani norvasc 2. routine care and discharge home tomorrow. All questions encouraged and answered Subjective Date of service: 04/20/22 Principal diagnosis: PPD#2 with Chronic HTN; multiple uterine fibroids Interval history: pt states she feels much better. denies headache and declines breast feeding with BP meds. Denies pelvic pain. Vag bleed scant Objective - Constitutional Vitals: Vital Signs - 12hr 04/20/22 04/20/22 04/20/22 08:00 08:05 13:26 Temperature 97.9 F 97.9 F Pulse Rate 70 74 Respiratory 20 20 Rate Blood Pressure 136/84 145/87 [Right] O2 Sat by Pulse 99 99 Oximetry O2 Sat by Pulse 99 Oximetry [ Bilateral] 04/20/22 15:10 Temperature 98 F Pulse Rate 75 Respiratory 20 Rate Blood Pressure 149/96 [Right] O2 Sat by Pulse 99 Oximetry O2 Sat by Pulse Oximetry [ Bilateral] General appearance: Present: no acute distress - Neck Neck: normal ROM - Respiratory Respiratory effort: normal - Breasts Breasts: deferred - Cardiovascular Rhythm: regular Extremities: No edema - Gastrointestinal General gastrointestinal: Present: soft, non-tender - Genitourinary Female genitourinary: other (Uterine fundus firm 2cm below umbilicus; lochia scant) - Integumentary Integumentary: warm, dry - Neurologic Neurologic: moves all extremities - Psychiatric Psychiatric: appropriate mood/affect - Labs CBC & Chem 7: 04/19/22 04:43 04/16/22 18:42 Labs: Abnormal lab results 04/17/22 Range/Units 14:15 Crossmatch See Detail Medications & Allergies - Medications Allergies/Adverse Reactions: Allergies Penicillins Allergy (Verified 02/17/15 18:23) Hives Home Medications: Home Medications Medication Instructions Recorded Confirmed Last Taken Type cephALEXin [Keflex] 1,000 mg PO Q12HR #20 cap 07/12/17 11/05/17 11/03/17 09:00 Rx Multivitamin Tablet 1 tab PO DAILY 11/03/17 11/03/17 11/03/17 09:00 History valACYclovir 1,000 mg PO DAILY 11/03/17 11/03/17 11/03/17 08:00 History Acetaminophen/Codeine [Tylenol 1 tab PO Q6H PRN #8 tab 09/24/21 Unknown Rx /Codeine # 3 tab] Ofloxacin 0.3% [Floxin 0.3% Otic] 2 drops OT Q2H 7 Days #1 bottle 09/24/21 Unknown Rx Active Medications: Generic Name Dose Route Start Last Admin Trade Name Freq PRN Reason Stop Dose Admin Acetaminophen 650 mg 04/19/22 21:42 Acetaminophen 325 Mg Tab PO Q4H PRN Pain MILD(1-3)/Fever >100.5/JARQUIN Hydrocodone Bitart/Acetaminophen 2 each 04/18/22 17:13 04/20/22 12:17 Hydrocodone/Acetaminophen 5-325 Mg Tab PO 2 each Q6H PRN Administration Pain, Moderate (4-6) Amlodipine Besylate 5 mg 04/20/22 10:00 04/20/22 10:22 Amlodipine 5 Mg Tab PO 5 mg QDAY FLORINA Administration Bisacodyl 10 mg 04/19/22 21:42 Bisacodyl 10 Mg Rect Supp NH BID PRN Constipation Diphenhydramine HCl 25 mg 04/19/22 21:42 Diphenhydramine 25 Mg Cap PO Q6H PRN Itching Losartan Potassium 25 mg 04/19/22 10:00 04/20/22 10:22 Losartan 25 Mg Tab PO 25 mg QDAY FLOR[place] Administration Magnesium Hydroxide 30 ml 04/19/22 21:42 Magnesium Hydroxide (Mom) Oral Liqd Udc PO HS PRN Constipation Multi-Ingredient Ointment 1 applic 04/18/22 17:13 Lanolin/Zinc/Dimethicone (Lansinoh) 7 Gm TP PRN PRN Sore Nipples Ondansetron HCl 4 mg 04/19/22 21:42 Ondansetron 4 Mg/2 Ml Inj IV Q8H PRN Nausea And Vomiting Oxycodone/Acetaminophen 1 tab 04/19/22 21:42 Oxycodone /Acetaminophen 5-325mg Tab PO Q6H PRN Pain, Moderate (4-6) Promethazine HCl 25 mg 04/19/22 21:42 Promethazine 25 Mg Rect Supp [place] Q6H PRN Nausea And Vomiting Promethazine HCl 25 mg 04/19/22 21:42 Promethazine 25 Mg Tab PO Q6H PRN Nausea And Vomiting Sodium Chloride 10 ml 04/18/22 18:00 Sodium Chloride 0.9% 10 Ml Flush Syringe IV PRN FLORINA Sodium Chloride 10 ml 04/19/22 21:42 Sodium Chloride 0.9% 10 Ml Flush Syringe IV 04/20/22 21:41 PRN NR [place]/Glycerin 1 each 04/18/22 17:13 [place]/ Glycerin Pad TP PRN PRN Hemorrhoid/cleansing/soothing
[2022-04-21] MEDS: HYDROcodone/ACETAMINOPHEN 5-325 MG TAB PO PRN ×2 (01:24→09:38)
--- NOTE | 2022-04-21 07:22 | Progress Note ---
Assessment and Plan PPD#3 with better control of her BP 1. Discharge pt home today and she may take one med at 10am and the other at 10pm 2. F/u office in 2days for BP check 3. All questions encouraged and answered Subjective Date of service: 04/21/22 Principal diagnosis: PPD#3 with Chronic HTN; multiple uterine fibroids Interval history: pt states she prefers to take the BP meds at separate times because when taken together she feels a litte "high". Pt denies headache. Overnight she rested. Pt is not breast feeding. Objective - Constitutional Vitals: Vital Signs - 12hr 04/20/22 04/20/22 04/21/22 20:25 20:48 01:09 Temperature 97.7 F Pulse Rate 78 77 Respiratory 20 Rate Blood Pressure 144/87 155/96 O2 Sat by Pulse 98 100 Oximetry O2 Sat by Pulse 98 Oximetry [ Bilateral] 04/21/22 05:00 Temperature Pulse Rate 76 Respiratory Rate Blood Pressure 133/89 O2 Sat by Pulse 98 Oximetry O2 Sat by Pulse Oximetry [ Bilateral] General appearance: Present: no acute distress - Neck Neck: normal ROM - Respiratory Respiratory effort: normal - Cardiovascular Rhythm: regular Extremities: No edema - Gastrointestinal General gastrointestinal: Present: soft, non-tender - Genitourinary Female genitourinary: other (fundus firm 2cm below umbilicus without tenderness) - Integumentary Integumentary: warm, dry - Neurologic Neurologic: moves all extremities - Psychiatric Psychiatric: cooperative - Labs CBC & Chem 7: 04/19/22 04:43 04/16/22 18:42 Medications & Allergies - Medications Allergies/Adverse Reactions: Allergies Penicillins Allergy (Verified 02/17/15 18:23) Hives Home Medications: Home Medications Medication Instructions Recorded Confirmed Last Taken Type cephALEXin [Keflex] 1,000 mg PO Q12HR #20 cap 07/12/17 11/05/17 11/03/17 09:00 Rx Multivitamin Tablet 1 tab PO DAILY 11/03/17 11/03/17 11/03/17 09:00 History valACYclovir 1,000 mg PO DAILY 11/03/17 11/03/17 11/03/17 08:00 History Acetaminophen/Codeine [Tylenol 1 tab PO Q6H PRN #8 tab 09/24/21 Unknown Rx /Codeine # 3 tab] Ofloxacin 0.3% [Floxin 0.3% Otic] 2 drops OT Q2H 7 Days #1 bottle 09/24/21 Unknown Rx Active Medications: Generic Name Dose Route Start Last Admin Trade Name Freq PRN Reason Stop Dose Admin Acetaminophen 650 mg 04/19/22 21:42 Acetaminophen 325 Mg Tab PO Q4H PRN Pain MILD(1-3)/Fever >100.5/JARQUIN Hydrocodone Bitart/Acetaminophen 2 each 04/18/22 17:13 04/21/22 01:24 Hydrocodone/Acetaminophen 5-325 Mg Tab PO 2 each Q6H PRN Administration Pain, Moderate (4-6) Amlodipine Besylate 5 mg 04/20/22 10:00 04/20/22 10:22 Amlodipine 5 Mg Tab PO 5 mg QDAY [facility] Administration Bisacodyl 10 mg 04/19/22 21:42 Bisacodyl 10 Mg Rect Supp OK BID PRN Constipation Diphenhydramine HCl 25 mg 04/19/22 21:42 Diphenhydramine 25 Mg Cap PO Q6H PRN Itching Losartan Potassium 25 mg 04/19/22 10:00 04/20/22 10:22 Losartan 25 Mg Tab PO 25 mg QDAY FLORINA Administration Magnesium Hydroxide 30 ml 04/19/22 21:42 Magnesium Hydroxide (Mom) Oral Liqd Udc PO HS PRN Constipation Multi-Ingredient Ointment 1 applic 04/18/22 17:13 Lanolin/Zinc/Dimethicone (Lansinoh) 7 Gm TP PRN PRN Sore Nipples Ondansetron HCl 4 mg 04/19/22 21:42 Ondansetron 4 Mg/2 Ml Inj IV Q8H PRN Nausea And Vomiting Oxycodone/Acetaminophen 1 tab 04/19/22 21:42 Oxycodone /Acetaminophen 5-325mg Tab PO Q6H PRN Pain, Moderate (4-6) Promethazine HCl 25 mg 04/19/22 21:42 Promethazine 25 Mg Rect Supp OK Q6H PRN Nausea And Vomiting Promethazine HCl 25 mg 04/19/22 21:42 Promethazine 25 Mg Tab PO Q6H PRN Nausea And Vomiting Sodium Chloride 10 ml 04/18/22 18:00 Sodium Chloride 0.9% 10 Ml Flush Syringe IV PRN FLORINA [place]/Glycerin 1 each 04/18/22 17:13 [place]/ Glycerin Pad TP PRN PRN Hemorrhoid/cleansing/soothing
--- NOTE | 2022-04-21 07:34 | Discharge Summary ---
Providers - Providers Date of Admission: 04/13/22 21:14 Date of discharge: 04/21/22 Attending physician: HIEU ALONZO Primary care physician: HIEU ALONZO Hospitalization Reason for admission: IUP at term (uncontrolled HTN, rule out superimposed preeclampsia, Uterine fibroids) Delivery: Episiotomy: none Laceration: none Other procedures: none complications: other (uncontrolled HTN requiring additional meds) Discharge diagnosis: IUP at term delivered, other (chronic HTN) baby: male Hospital course: Term preg with induction due to chronic HTN, possible preeclampsia and same occured after 5days with viable male . pt was given mag sulfate and then oral med losartan 25mg daily and norvasc 5mg daily and pt plans to take med at different times. Pt desired to go home hence discharge. Pt encouraged to be compliant. Condition at discharge: Fair Disposition: 01 HOME / SELF CARE / HOMELESS - Discharge Diagnoses (1) Chronic hypertension affecting Status: Acute Plan - Discharge Medications Prescriptions: Losartan [Cozaar] 12.5 mg PO QDAY 30 Days #30 tablet Amlodipine Besylate [Norvasc] 5 mg PO DAILY 30 Days #30 tab - Provider Discharge Summary Additional instructions: [] Smoking cessation referral if applicable(refer to patient education folder for contact #) [] Refer to [facility] Booklet Call your doctor immediately for: * Fever > 100.5 * Heavy vaginal bleeding ( >1 pad per hour) * Severe persistent headache * Shortness of breath * Reddened, hot, painful area to leg or breast * Drainage or odor from incision. * Keep incision clean and dry at all times and follow doctor's instructions regarding bathing/showering - Follow up plan Follow up: HIEU ALONZO MD [Primary Care Provider] - 7 Days Forms: [facility] Discharge Summary, Discharge Signature Page
[2022-04-21] MEDS: amLODIPine 5 MG TAB PO SCH (09:38)
[2022-04-21 12:24] VITALS: BP 148/87
== END 2022-04-21 12:30 | disposition home or self-care (01) | DRG 774 ==
LOC: LD 21:14 → OB 04-19 20:49
PROVIDERS: ADMIT Obstetrics & Gynecology; ATTEND Obstetrics & Gynecology
PROC: 10E0XZZ Delivery of Products of Conception, External Approach (ICD-10-PCS; principal; 2022-04-18)
PROC: 3E0P7VZ Introduction of Hormone into Female Reproductive, Via Natural or Artificial Opening (ICD-10-PCS; 2022-04-18)
PROC: 3E0R3BZ Introduction of Anesthetic Agent into Spinal Canal, Percutaneous Approach (ICD-10-PCS; 2022-04-18)
PROC: 00HU33Z Insertion of Infusion Device into Spinal Canal, Percutaneous Approach (ICD-10-PCS; 2022-04-18)
DX: O10.92 Unspecified pre-existing hypertension complicating childbirth (principal); O98.32 Other infections with a predominantly sexual mode of transmission complicating childbirth; O99.820 Streptococcus B carrier state complicating pregnancy; A60.00 Herpesviral infection of urogenital system, unspecified; O34.13 Maternal care for benign tumor of corpus uteri, third trimester; D25.9 Leiomyoma of uterus, unspecified; O99.824 Streptococcus B carrier state complicating childbirth; O32.0XX0 Maternal care for unstable lie, not applicable or unspecified; O62.3 Precipitate labor; Z20.822 Contact with and (suspected) exposure to COVID-19; Z3A.38 38 weeks gestation of pregnancy; Z37.0 Single live birth
CPT/HCPCS: 36415; 76815; 76816; 76817; 82565; 82962; 83615; 83735; 84450; 84460; 84550; 85014; 85018; 85025; 85027; 86592; 86850; 86900; 86901; 86920; G0378; J3490; J7121; J0595; J0690; J1100; J2370; J2405; J2590; J2765; J3475; J7120; U0003

== ENCOUNTER 2022-07-24 08:44 | Day surgery (SDC) | payer MEDICAID ==
--- NOTE | 2022-07-24 07:42 | Short Stay Summary ---
Short Stay Documentation Date of service: 07/24/22 Narrative H&P: 36-year-old -1-4-4 with a history of undesired fertility. The patient is elected for permanent sterilization. She is aware of other contraceptive options. - History Principal diagnosis: Undesired fertility Past Medical History: hypertension Past Surgical History: Other (Dilatation and curettage) Social history: single - Allergies and Medications Current Medications: Allergies Penicillins Allergy (Verified 07/17/22 20:06) Hives Home Medications Medication Instructions Recorded Confirmed Last Taken Type Amlodipine Besylate [Norvasc] 5 mg PO DAILY 30 Days #30 tab 04/21/22 07/17/22 Unknown Rx Losartan [Cozaar] 12.5 mg PO QDAY 30 Days #30 tablet 04/21/22 07/17/22 Unknown Rx Active Medications Acetaminophen (Acetaminophen 500 Mg Tab) 1,000 mg PO PREOP FLORINA Stop: 07/24/22 23:59 Celecoxib (Celecoxib 200 Mg Cap) 200 mg PO PREOP NR Stop: 07/24/22 23:59 Gabapentin (Gabapentin 300 Mg Cap) 300 mg PO PREOP NR Stop: 07/24/22 23:59 Lactated Ringer's (Lactated Ringers) 1,000 mls @ 100 mls/hr IV DIRECT FLORINA Stop: 07/24/22 23:59 Midazolam HCl (Midazolam 2 Mg/2 Ml Inj) 2 mg IV PREOP NR Stop: 07/24/22 23:59 Scopolamine (Scopolamine Transdermal Patch 72 Hr) 1 each TD PREOP NR Stop: 07/24/22 23:59 - Physical exam General appearance: no acute distress Integumentary: no rash HEENT: Atraumatic Lungs: Clear to auscultation Breasts: deferred Heart: Regular rate Gastrointestinal: normal - Brief post op/procedure progress note Date of procedure: 07/24/22 Pre-op diagnosis: Undesired fertility Post-op diagnosis: same Procedure: Laparoscopic bilateral tubal ligation with Filshie clips Anesthesia: ANDREI Surgeon: DOMINIQUE MATHIAS Estimated blood loss: minimal Pathology: none Condition: stable - Hospital course Hospital course: The patient was admitted the day of surgery underwent a laparoscopic bilateral tubal ligation with Filshie clips. Please see operative note for details of surgery. Her postoperative course was uneventful. - Disposition Condition at discharge: Good Disposition: 01 HOME / SELF CARE / HOMELESS Short Stay Discharge Plan Activity: other (Pelvic rest for 1 week) Diet: regular Additional Instructions: Follow-up is not required Follow-up as needed Prescriptions: Ibuprofen [Motrin] 800 mg PO Q8HR PRN #30 tablet PRN Reason: Pain , Severe (7-10) HYDROcodone/APAP 5-325 [[place] 5/325] 1 each PO Q6HR PRN #15 tablet PRN Reason: Pain
[~2022-07-24 08:44] MED LIST: ACETAMINOPHEN 500 MG TAB PO SCH; CELECOXIB 200 MG CAP PO NR; GABAPENTIN 300 MG CAP PO NR; LACTATED RINGERS 1,000 ML IV SCH; MIDAZOLAM 2 MG/2 ML INJ IV NR; SCOPOLAMINE TRANSDERMAL PATCH 72 HR TD NR
--- NOTE | 2022-07-24 10:27 | Anesthesia Consultation ---
Anesthesia Consult and Med Hx Date of service: 07/24/22 - Airway Anesthetic Teeth Evaluation: Good (some missing teeth left upper side) ROM Head & Neck: Adequate Mental/Hyoid Distance: Adequate Mallampati Class: Class II Intubation Access Assessment: Probably Good - Pre-Operative Health Status ASA Pre-Surgery Classification: ASA2 Proposed Anesthetic Plan: General - Pulmonary Hx Smoking: Yes Hx Asthma: No Hx Respiratory Symptoms: No SOB: No COPD: No Hx Pneumonia: No Hx Sleep Apnea: No - Cardiovascular System Hx Hypertension: Yes Hx Coronary Artery Disease: No Hx Heart Attack/AMI: No Hx Angina: No Hx Percutaneous Transluminal Coronary Angioplasty (PTCA): No Hx Cardia Arrhythmia: No Hx Pacemaker: No Hx Internal Defibrillator: No Hx Valvular Heart Disease: No Hx Heart Murmur: No Hx Peripheral Vascular Disease: No - Central Nervous System Hx Neuromuscular Disorder: No Hx Seizures: No CVA: No Hx Back Pain: No Hx Psychiatric Problems: No - Gastrointestinal Hx Ulcer: Yes Hx Gastroesophageal Reflux Disease: No - Endocrine Hx Renal Disease: No Hx End Stage Renal Disease: No Hx Cirrhosis: No Hx Liver Disease: No Hx Insulin Dependent Diabetes: No Hx Non-Insulin Dependent Diabetes: No Hx Thyroid Disease: No Hx Hypothyroidism: No Hx Hyperthyroidism: No - Hematic Hx Anemia: No Hx Sickle Cell Disease: No - Other Systems Hx Alcohol Use: Yes (Occas) Hx Substance Use: No Hx Cancer: No Hx Obesity: No
--- NOTE | 2022-07-24 10:28 | Anesthesia Day of Surgery ---
Anesthesia Day of Surgery - Day of Surgery Patient Examined: Yes Patient H&P Reviewed: Yes Patient is NPO: Yes
[2022-07-24] MEDS ORDERED: BUPIVACAINE/PF (0.5%) 5 MG/1 ML 10 ML VIAL INFILTRATI ONE ×2 (10:45→11:21)
[2022-07-24] MEDS ORDERED: HYDROmorphone 1 MG/1 ML INJ ONE (10:45)
[2022-07-24] MEDS ORDERED: propofoL 200 MG/20 ML VIAL IV ONE (10:45)
[2022-07-24] MEDS ORDERED: LIDOCAINE MPF (2%) 20 MG/1 ML VIAL 5 ML ONE (10:46)
[2022-07-24] MEDS ORDERED: ROCURONIUM 50 MG/5 ML INJ IV ONE (10:48)
[2022-07-24] MEDS ORDERED: oxyCODONE /ACETAMINOPHEN 5-325MG TAB PO PRN (11:00)
[2022-07-24] MEDS ORDERED: ONDANSETRON 4 MG/2 ML INJ IV PRN (11:00)
[2022-07-24] MEDS ORDERED: HYDROmorphone 0.5 MG/0.5 ML INJ IV PRN (11:00)
[2022-07-24] MEDS ORDERED: SODIUM CHLORIDE 0.9% IRR 1,500 ML BOTTLE IR ONE (11:21)
[2022-07-24] MEDS ORDERED: SUGAMMADEX SODIUM 200 MG/2 ML VIAL IV ONE (11:29)
[2022-07-24] MEDS ORDERED: KETOROLAC 30 MG/1 ML INJ ONE (11:36)
[2022-07-24] MEDS ORDERED: ONDANSETRON 4 MG/2 ML INJ ONE (11:36)
--- NOTE | 2022-07-24 11:37 | Operative Report ---
Operative Report Operative Report: Date of surgery: July 24, 2022 Preoperative diagnosis: Unwanted fertility Postoperative diagnosis: Same as above Procedure: Laparoscopic bilateral tubal ligation with Filshie clips Surgeon: Ana Llanes M.D. Anesthesia: General endotracheal anesthesia Estimated blood loss: Minimal Findings: Multiple uterine fibroids with a prominent subserosal leiomyoma Indication: 36-year-old -1-4-4 with undesired fertility. Procedure: The patient was taken to the operating room and given general endotracheal anesthesia without complication. The patient is prepped and draped in a normal sterile fashion. A bivalve speculum was placed in the patient's vagina and a single-tooth tenaculum was placed on the anterior lip of the cervix .A uterine acorn manipulator was placed, and the bivalve speculum was then removed. Attention was then turned to the patient's abdomen where a 5 mm infraumbilical skin incision was then made. A Veress needle was placed and peritoneal entry was verified water-filled syringe. Insufflation of the peritoneal cavity was performed with CO2 gas. A 5 mm trocar was placed and the laparoscope was then inserted. The patient was then placed in Trendelenburg. A 7 mm suprapubic skin incision was then made. Under direct visualization a 7 mm trocar was then placed. An additional 5 mm left lateral trocar was also placed. General survey of the patient's abdomen revealed multiple leiomyomas normal tubes and ovaries. The fallopian tube was then followed out to the fimbriated end. A Filshie clip was applied to the ampullary portion of the tube this was performed on the contralateral side as well. The trocars were then removed. The pneumoperitoneum was then released. The 5 mm trocar laparoscope was then removed. The skin incisions were then closed with 4-0 Monocryl. The incisions were injected with quarter percent Marcaine. Dressings were applied to the incision. The vaginal instruments were then removed atraumatically. Then successfully extubated and taken to the recovery room. All sponge laps and needle counts were correct x2.
[2022-07-24] MEDS ORDERED: hydrALAZINE 20 MG/1 ML INJ ONE (12:10)
[2022-07-24] MEDS ORDERED: hydrALAZINE 20 MG/1 ML INJ IV ONE (12:13)
[2022-07-24 13:19] VITALS: BP 139/97
--- NOTE | 2022-07-24 14:07 | Post Anesthesia Evaluation ---
- Post Anesthesia Evaluation Patient Participated: Yes Airway Patent: Yes Stable Respiratory Function: Yes Nausea/Vomiting: No Temp > 96.8F: Yes Pain Manageable: Yes Adequeate Hydration: Yes Anesthesia Complications: No
== END 2022-07-24 13:10 | disposition home or self-care (01) ==
LOC: OR 08:44
PROVIDERS: ATTEND Obstetrics & Gynecology
DX: Z30.2 Encounter for sterilization (principal); F17.210 Nicotine dependence, cigarettes, uncomplicated; G43.909 Migraine, unspecified, not intractable, without status migrainosus; I10 Essential (primary) hypertension; K21.9 Gastro-esophageal reflux disease without esophagitis; Z72.89 Other problems related to lifestyle; Z88.0 Allergy status to penicillin; Z79.899 Other long term (current) drug therapy; Z98.890 Other specified postprocedural states; Z83.3 Family history of diabetes mellitus; Z80.8 Family history of malignant neoplasm of other organs or systems; Z82.49 Family history of ischemic heart disease and other diseases of the circulatory system
CPT/HCPCS: 58671; 81025; J0360; J1170; J1885; J2250; J2405; J2704; J3490; J7120